=== PATIENT | female | born 1995 | race Caucasian/White ===

== ENCOUNTER 2018-06-03 07:50 | Inpatient (IN) ==
[2018-06-03] MEDS ORDERED: Propofol Inj 500 MG/50 ML Vial ONE (08:01)
[2018-06-03] MEDS ORDERED: Sod Chloride 0.9% Inj 1,000 ML IV.SIG ONE (08:04)
[2018-06-03] MEDS ORDERED: Etomidate Inj 20 MG/10 ML Ampul IV.PUSH ONE (08:04)
[2018-06-03] MEDS ORDERED: Succinylcholine Inj 100 MG/5 ML Syringe IV.PUSH ONE (08:04)
[2018-06-03] MEDS ORDERED: Propofol 1000 mg/100 ml Inj 1,000 MG/100 ML BOTTLE IV.CONT PRN (08:04)
[2018-06-03 08:27] LABS: ABG Base Excess -5.3 mmol/L (-2-2); ABG PCO2 37 mmHg (38-42); ABG PO2 355 mmHg (61-120)
[2018-06-03 08:35] LABS: Baso # (Auto) 0.1 th/mm3 (0.0-0.2); Baso % (Auto) 0.7 % (0.0-2.0); Eos # (Auto) 0.5 th/mm3 (0.0-0.4); Lymph # (Auto) 2.2 th/mm3 (1.0-4.8); Lymph % (Auto) 18.6 % (9.0-44.0); Mean Corpuscular HGB Conc 34.4 % (32.0-36.0); Mean Corpuscular Hemoglobin 30.8 pg (27.0-34.0); Mean Corpuscular Volume 89.7 fL (80.0-100.0); Mean Platelet Volume 8.3 fL (7.0-11.0); Mono % (Auto) 8.4 % (0.0-8.0); Neut # (Auto) 8.1 th/mm3 (1.8-7.7); Neut % (Auto) 68.3 % (16.0-70.0); Platelet Count 321 th/mm3 (150-450); Red Blood Count 3.23 mil/mm3 (4.00-5.30); Red Cell Distribution Width 14.4 % (11.6-17.2); White Blood Count 11.8 th/mm3 (4.0-11.0)
[2018-06-03 08:38] LABS: Bilirubin,Urine Negative (Negative); Clarity,Urine Hazy (Clear); Color,Urine Amber (Yellw/Straw); Glucose,Urine (UA) Negative (Negative); Leukocyte Esterase,Urine Trace (Negative); Mucus,Urine Many /lpf (Occasional); Nitrite,Urine Negative (Negative); Specific Gravity,Urine 1.029 (1.002-1.035); Squamous Epithelial Cell,Urine 1 /hpf (0-5)
[2018-06-03 08:42] LABS: INR 1.2 Ratio; Prothrombin Time 12.2 sec (9.8-11.6)
[2018-06-03 08:48] LABS: Amphetamine Screen,Urine Pos (Neg); Barbiturate Screen,Urine Neg (Neg); Cannabinoid Screen,Urine Neg (Neg); Cocaine Screen,Urine Neg (Neg)
[2018-06-03] MEDS ORDERED: Atropine Inj 1 MG/10 ML Syringe ONE (08:50)
[2018-06-03] MEDS ORDERED: Potassium Phosphate Inj 30 MMOL in Sodium Chlor 0.9% Inj 250 ML IV.SIG PRN (08:52)
[2018-06-03] MEDS ORDERED: Sodium Phosphate Inj 30 MMOL in Sodium Chlor 0.9% Inj 250 ML IV.SIG PRN (08:52)
[2018-06-03] MEDS ORDERED: Bisacodyl 10 MG Supp RECTAL PRN (08:52)
[2018-06-03] MEDS ORDERED: fentaNYL 10 mcg/mL Premix Drip 2,500 MCG/250 ML BAG IV.SIG PRN (08:52)
[2018-06-03] MEDS ORDERED: Magnesium Oxide 400 MG Tablet PO PRN (08:52)
[2018-06-03] MEDS ORDERED: Magnesium Sulfate Inj 2 GM in Sodium Chlor 0.9% Inj 96 ML IV.SIG PRN (08:52)
[2018-06-03] MEDS ORDERED: Potassium Phosphate 500 MG Soluble Tablet PO PRN ×2 (08:52)
[2018-06-03] MEDS ORDERED: Potassium Chlor 20 mEq Premix 20 MEQ/100 ML PIGGYBACK IV.SIG PRN ×2 (08:52)
[2018-06-03] MEDS ORDERED: Potassium Chloride 25 MEQ Effervescent Tablet PO PRN (08:52)
[2018-06-03] MEDS ORDERED: Potassium Chlor 40 mEq Premix 40 MEQ/100 ML PIGGYBACK IV.SIG PRN ×2 (08:52)
[2018-06-03] MEDS ORDERED: Magnesium Sulfate Inj 4 GM in Sodium Chlor 0.9% Inj 92 ML IV.SIG PRN (08:52)
[2018-06-03 08:56] LABS: Opiate Screen,Urine Neg (Neg)
[2018-06-03 08:59] LABS: Albumin 3.1 g/dL (3.4-5.0); Anion Gap 12 meq/L (5-15); Aspartate Aminotransferase 32 U/L (15-37); Blood Urea Nitrogen 14 mg/dL (7-18); Calcium 8.5 mg/dL (8.5-10.1); Chloride 111 meq/L (98-107); Glomerular Filtration Rate 77 mL/min (>89); Glucose,Random 113 mg/dL (74-106); Lipase 103 U/L (73-393); Sodium 143 meq/L (136-145)
--- NOTE | 2018-06-03 08:59 | P.HPCC ---
History of Present Illness Service: Critical care medicine Primary Care Physician: Unknown Chief Complaint: Patient overdose on GHB/respiratory failure unresponsive History of Present Illness: This is a 23-year-old female. Actual name is Kay Duran. Date of admission 06/03/2018. Past medical history includes previous admissions with psychosis previously on olanzapine 5 mg daily 2014. Patient is currently around 4 months according to boyfriend. Patient does have track ballard in the left upper extremity laceration to her left pinky which is currently being sutured. Also severe valdivia on her abdomen and multiple tattoos. Patient presented to [facility] ED after taking an unknown amount of GHB and methamphetamine according to reports. Patient was intubated using 20 mg etomidate and 100 mg succinylcholine. Laceration left index finger currently being sutured and tdp will be provided. Patient was bradycardic requiring 1 mg of atropine. Bedside ultrasound was field twin pregnancies. 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 heart tones in ICU. Patient is currently intubated and sedated on a propofol drip Review of Systems unobtainable due to endotracheal tube PMFSH - History History Provided By: Family Member - Medical / Surgical Hx Neg / Unobtainable Medical Problems Denied: Unable to Obtain - Medical History Medical History: Medical History (Last Updated 06/03/18 @ 09:05 by Ck Marrero MD) Medical history unknown Surgical history unknown - Surgical History Surgical History: Surgical History (Last Updated 06/03/18 @ 09:05 by Ck Marrero MD) No significant past surgical history - Family History Family History: Family History (Last Updated 06/03/18 @ 09:04 by Ck Marrero MD) Other No significant family history - Tobacco History Second Hand Smoke Exposure: Yes Tobacco Use In Past 30 Days: Yes Smoking Status: Light tobacco smoker Tobacco Type: Cigarettes - Alcohol History How Often Do You Have a Drink Containing Alcohol: 2 to 4 times a month - Substance Use History Substance History: Active Abuse - Substance Use Type Amphetamines Status: Active Route Used: Inhalation Frequency: DAILY 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 Drugs Type: GHB Status: Active Route Used: By Mouth Reason for Use: Get High - Travel History Recent Travel in the [place] Within the Last 8 Weeks: No Recent Travel Out of the Country Within the Last 8 Weeks: No - Immunization History Tetanus Immunization: Unable to Assess Hx Influenza Vaccine This Season: Unable to Assess Medications and Allergies Active Medications: Active Medications Al Hydroxide/Mg Hydroxide (Milk Of [place] Liq) 30 ml PO Q12H PRN PRN Reason: Mild Constipation Albuterol (Albuterol Neb (Ximena)) 2.5 mg NEB Q2HR NEB PRN PRN Reason: SHORTNESS OF BREATH/WHEEZING Artificial Tears (Genteal Severe Dry Eye Relief 0.3% Opth Gel) 1 drops EACH EYE BID XIMENA Bisacodyl (Dulcolax Supp) 10 mg RECTAL DAILY PRN PRN Reason: SEVERE CONSITIPATION Chlorhexidine Gluconate (Chlorhexidine 2% Cloth) 3 pack TOPICAL DAILY@0400 XIMENA Stop: 06/09/18 03:59 Chlorhexidine Gluconate (Chlorhexidine 2% Cloth) 3 pack TOPICAL DAILY@0400 PRN PRN Reason: Extra cloth needed Stop: 06/09/18 03:59 Famotidine (Pepcid Pf Inj) 20 mg IV.PUSH Q12HR XIMENA Propofol (Diprivan 1000 Mg/100 Ml Inj) 1,000 mg in 100 mls @ 1.769 mls/hr IV.CONT TITRATE PRN; Protocol PRN Reason: Per Protocol Last Admin: 06/03/18 08:28 Dose: 5 mcg/kg/min, 1.77 mls/hr Fentanyl (Fentanyl 10 Mcg/Ml Premix Drip) 2,500 mcg in 250 mls @ 5 mls/hr IV.SIG TITRATE PRN; Protocol PRN Reason: Per Protocol Magnesium Sulfate Inj 4 gm/ (Sodium Chloride) 100 mls @ 50 mls/hr IV.SIG UNSCH PRN PRN Reason: For Magnesium 0.9 - 1.1 mg/dL Magnesium Sulfate Inj 2 gm/ (Sodium Chloride) 100 mls @ 50 mls/hr IV.SIG UNSCH PRN PRN Reason: For Magnesium 1.2 - 1.6 mg/dL Sodium Chloride (Ns Inj) 1,000 mls @ 84 mls/hr IV.CONT .[id number] XIMENA Potassium Chloride (Kcl 40 Meq Premix Inj) 40 meq in 100 mls @ 25 mls/hr IV.SIG Q2H PRN PRN Reason: For Potassium 2.8 - 3.2 mEq/L Potassium Chloride (Kcl 40 Meq Premix Inj) 40 meq in 100 mls @ 25 mls/hr IV.SIG UNSCH PRN PRN Reason: For Potassium 3.3 - 3.5 mEq/L Potassium Chloride (Kcl 20 Meq Premix Inj) 20 meq in 100 mls @ 50 mls/hr IV.SIG Q2H PRN PRN Reason: For Potassium 2.8 - 3.2 mEq/L Potassium Phosphate 30 mmol/ (Sodium Chloride) 260 mls @ 42 mls/hr IV.SIG UNSCH PRN PRN Reason: SEE LABEL COMMENTS Sodium Phosphate 30 mmol/ (Sodium Chloride) 260 mls @ 42 mls/hr IV.SIG UNSCH PRN PRN Reason: For Phosphorus < 2.5 mg/dL Potassium Chloride (Kcl 20 Meq Premix Inj) 20 meq in 100 mls @ 50 mls/hr IV.SIG Q2H PRN PRN Reason: For Potassium 3.3 - 3.5 mEq/L Lactulose (Lactulose Liq) 30 ml PO DAILY PRN PRN Reason: SEVERE CONSITIPATION Magnesium Oxide (Mag-Ox) 800 mg PO UNSCH PRN PRN Reason: For Magnesium 1.2 - 1.6 mg/dL Potassium Bicarb/Potassium Chloride (K-Lyte Cl Eff) 50 meq PO UNSCH PRN PRN Reason: For Potassium 3.3 - 3.5 mEq/L Potassium Phosphate (K-Phos Original) 2,000 mg PO Q4H PRN PRN Reason: Phosphorus Less Than 2.5 mg/dL Potassium Phosphate (K-Phos Original) 2,000 mg PO UNSCH PRN PRN Reason: SEE LABEL COMMENTS Senna/Docusate Sodium (Rain-Colace) 1 tab PO BID XIMENA Sennosides (Senokot) 17.2 mg PO Q12H PRN PRN Reason: Moderate Constipation Sodium Chloride (Ns Flush) 2 ml IV.FLUSH BID XIMENA Sodium Chloride (Ns Flush) 2 ml IV.FLUSH PRN PRN PRN Reason: FLUSH AFTER USING IV ACCESS Allergies Allergy/AdvReac Type Severity Reaction Status Date / Time No Allergy Information Allergy Verified 06/03/18 08:16 Available Home Medications Medication Instructions Recorded Confirmed Type Unable to Obtain Home Meds 06/03/18 06/03/18 History Results - Labs CBC & Chem 7: 06/03/18 08:00 06/03/18 08:00 Labs: Short CBC 06/03/18 Range/Units 08:00 WBC 11.8 H (4.0-11.0) th/mm3 Hgb 10.0 L (11.6-15.3) gm/dL Hct 29.0 L (35.0-46.0) % Plt Count 321 (150-450) th/mm3 Urine 06/03/18 Range/Units 08:15 Urine Color Beth (Yellw/Straw) Urine Clarity Hazy H (Clear) Urine pH 5.0 (5.0-8.5) Ur Specific [place] 1.029 (1.002-1.035) Urine Protein 30 H (Neg-Trace) mg/dL Urine Glucose (UA) Negative (Negative) mg/dL Exam Vital signs: Vital Signs 06/03/18 07:56 06/03/18 07:58 06/03/18 08:01 Temperature 94 F L Pulse Rate 50 L 59 L Respiratory Rate 4 L 16 16 Blood Pressure 136/71 142/69 H Pulse Oximetry 100 100 100 06/03/18 08:29 Temperature Pulse Rate 41 L Respiratory Rate 14 Blood Pressure 122/58 L Pulse Oximetry 100 Intake & Output 06/02/18 06/03/18 06/03/18 18:59 06:59 18:59 Weight 58.967 kg Narrative: GENERAL: 23-year-old female currently orotracheally intubated SKIN: Warm and dry. Multiple tattoos. Laceration to left pinky's sutured. Pulses intact. HEAD: Atraumatic. Normocephalic. EYES: Pupils equal and round about 3 members bilaterally reactive to 2.. No scleral icterus. No injection or drainage. ENT: No nasal bleeding or discharge. Mucous membranes pink and moist. NECK: Trachea midline. No JVD. CARDIOVASCULAR: Bradycardic, RR. S1, S2. No S4. 2/6 murmur pansystolic RESPIRATORY: No accessory muscle use. Clear to auscultation. Breath sounds equal bilaterally. GASTROINTESTINAL: Abdomen soft, protuberant. Hypoactive bowel sounds appreciated heart tones are appreciated on monitor MUSCULOSKELETAL: Extremities without clubbing, cyanosis, or edema. No obvious deformities. NEUROLOGICAL: Currently sedated on a propofol drip on the ventilator. Positive gag. Withdraws to pain. Septic Shock Reassessment Septic shock perfusion: reassessment completed Caprini VTE Risk Assessment Caprini VTE Risk Assessment: No/Low Risk (score <= 1) VTE Pharmacological Exception Reason: High risk for bleeding Caprini Risk Assessment Model: Point Value = 1 Point Value = 2 Point Value = 3 Point Value = 5 Age 41-60 Minor surgery BMI > 25 kg/m2 Swollen legs Varicose veins or History of unexplained or recurrent spontaneous Oral contraceptives or hormone replacement Sepsis (< 1 month) Serious lung disease, including pneumonia (< 1 month) Abnormal pulmonary function Acute myocardial infarction Congestive heart failure (< 1 month) History of inflammatory bowel disease Medical patient at bed rest Age 61-74 Arthroscopic surgery Major open surgery (> 45 min) Laparoscopic surgery (> 45 min) Malignancy Confined to bed (> 72 hours) Immobilizing plaster cast Central venous access Age >= 75 History of VTE Family history of VTE Factor V Leiden Prothrombin [id number] Lupus anticoagulant Anticardiolipin antibodies Elevated serum homocysteine Heparin-induced thrombocytopenia Other congenital or acquired thrombophilia Stroke (< 1 month) Elective arthroplasty Hip, pelvis, or leg fracture Acute spinal cord injury (< 1 month) Prophylaxis Regimen: Total Risk Factor Score Risk Level Prophylaxis Regimen 0-1 Low Early ambulation 2 Moderate Order ONE of the following: *Sequential Compression Device (SCD) *Heparin 5000 units SQ BID 3-4 Higher Order ONE of the following medications: *Heparin 5000 units SQ TID *Enoxaparin/Lovenox 40 mg SQ daily (WT < 150 kg, CrCl > 30 mL/min) *Enoxaparin/Lovenox 30 mg SQ daily (WT < 150 kg, CrCl > 10-29 mL/min) *Enoxaparin/Lovenox 30 mg SQ BID (WT < 150 kg, CrCl > 30 mL/min) AND/OR *Sequential Compression Device (SCD) 5 or more Highest Order ONE of the following medications: *Heparin 5000 units SQ TID (Preferred with Epidurals) *Enoxaparin/Lovenox 40 mg SQ daily (WT < 150 kg, CrCl > 30 mL/min) *Enoxaparin/Lovenox 30 mg SQ daily (WT < 150 kg, CrCl > 10-29 mL/min) *Enoxaparin/Lovenox 30 mg SQ BID (WT < 150 kg, CrCl > 30 mL/min) AND *Sequential Compression Device (SCD) Assessment and Plan - Assessment and Plan Plan: Neuro/Psych: Polysubstance overdose including GHB and and methamphetamine/reported Acute delirium Patient is written for propofol/fentanyl drips for sedation/analgesia while intubated RASS -1 Daily sedation vacation Acetaminophen 650 every 6 hours as needed fever CV: Sinus bradycardia Follow-up on EKG. Received 1 mg atropine ED. We will attempt use fentanyl or propofol for sedation currently. Resp: Acute respiratory failure PRVC 16/450/1//60 Ventilator bundle As needed albuterol aerosols every 2 hours. Dyspnea Spontaneous breathing trials when clinically indicated GI: OGT to LIWS Famotidine for GI prophylaxis Docusate sodium/senna 1 tablet twice daily for bowel regimen : Maintain [place] catheter for accurate I's and O's in a critically ill patient. 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 Endo: Sliding scale insulin with aspart insulin 6 to maintain euglycemia every 6 hours Check TSH Renal: Currently normal saline at 84 cc an hour Monitor urine output Accurate I's and O's Heme: Leukocytosis Normocytic anemia Monitor CBC daily. Follow trends. No indication for transfusion of blood products at this time. INR 1.2 ID: Monitor for signs and symptomatology infection. UA negative FEN: Replace electrolytes as clinically indicated per ICU electrolyte protocol MSK: PT evaluate and treat Access -Utilize peripheral IV. Central line if indicated Prophylaxis -GI -famotidine -DVT -SCD/holding pharmacological prophylaxis in light of Critical care time 35 minutes addendum Patient self extubated and brought to floor. Currently on as needed lorazepam, fentanyl and dexmedetomidine drip if needed. Psychiatric consultation. Discussed with OB hospitalist. Okayed for use of benzodiazepines and opiates initially. Precedex if absolutely necessary. Patient appears to be calm down. Psychiatry consultation for overdose Code Status: Full code Discussed Condition With: Dr. Stearns/ED physician. ED RN. Care plan discussed and all questions answered.
[2018-06-03 09:00] LABS: Alanine Aminotransferase 28 U/L (10-53)
[2018-06-03] MEDS ORDERED: Diphtheria/Tetanus/Pertussis Vaccine Inj 0.5 ML Syringe IM ONE ×2 (09:05→09:36)
[2018-06-03] MEDS ORDERED: fentaNYL 10 mcg/mL Premix Drip 2,500 MCG/250 ML BAG ONE (09:08)
[2018-06-03] MEDS ORDERED: Dextrose 50% in Water 50 ML Vial IV.PUSH PRN (09:14)
[2018-06-03 09:18] LABS: Alkaline Phosphatase 68 U/L (45-117); Beta HCG,Quantitative 71234 mIU/mL (0-5); Total Protein 6.6 g/dL (6.4-8.2)
--- NOTE | 2018-06-03 09:21 | ED ---
HPI General Chief complaint: Overdose Stated complaint: Straightback Time Seen by Provider: 06/03/18 08:03 Source: patient and RN notes reviewed Mode of arrival: other History of Present Illness HPI narrative: Approximately 18yF brought in by boyfriend for overdose. The friend reports that the patient is approximately 4 months and took an unknown amount of GHB and methamphetamine prior to arrival. The patient arrived unresponsive and was not able to provide meaningful contribution to HPI. Related Data Home Medications Medication Instructions Recorded Confirmed Unable to Obtain Home Meds 06/03/18 06/03/18 Allergies Allergy/AdvReac Type Severity Reaction Status Date / Time No Allergy Information Allergy Verified 06/03/18 08:16 Available Review of Systems ROS Unobtainable unobtainable due to mental status PMFSH History History Provided By: Patient Medical History Medical History Medical history unknown (Acute) Surgical history unknown (Acute) Surgical History Surgical History No significant past surgical history (Acute) Family History Family History Other No significant family history Social History Social History Substance History: Active Abuse Second Hand Smoke Exposure: Yes Smoking Status: Light tobacco smoker Tobacco Type: Cigarettes How Often Do You Have a Drink Containing Alcohol: 2 to 4 times a month Recent Travel in [place] within the Last 8 Weeks: No Recent Out of Country Travel within the Last 8 Weeks: No Substance Abuse Detail Amphetamines: Substance Use Status: Active Route Used Substance Abuse: Inhalation Substance Frequency: DAILY Reason for Use: Get High 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 Drugs: Substance Use Type Other:: GHB Substance Use Status: Active Route Used Substance Abuse: By Mouth Reason for Use: Get High Immunization History Tetanus Immunization: Unable to Assess Hx Influenza Vaccine This Season: Unable to Assess Exam Const Other: Unresponsive HENMT Head: normocephalic and atraumatic Eyes Other: Pupils 2 mm and sluggishly reactive Chest Chest: normal inspection of the chest Resp Other: Agonal respirations Cardio Rate: bradycardic Rhythm: regular rhythm GI Inspection: non-distended Palpation: soft and nontender Other: Uterine fundus palpable below umbilicus Doppler heart tones in RLQ 137 BPM Skin Other: Multiple scars on arms consistent with IV drug abuse Circular scars on legs concerning for healed valdivia 4 cm complex laceration to left 5th digit with arterial bleeding Diaphoretic Neuro Other: GCS 4 ([id number]), no spontaneous movements of extremities Psych Other: Unable to assess Procedures Intubation Time Out Performed: No Sedative: etomidate Mg Given: 20 Paralytic: succinylcholine Mg Given: 100 Laryngoscope: Chap[place] ET Tube Size: 7 ET Tube Uncuffed: Yes Tube Secured Depth (cm): 25 Tube Secured Location: teeth Tube Placement Confirmation: visualized tube passing through cords, equal breath sounds bilaterally and no breath sounds over epigastrium Patient Tolerated Procedure: well and no complications Laceration Laceration 1: Site: hand Side (If applicable): left Size (cm): 4 Description: irregular and other (complex) Depth: involves muscle layer Pre-repair:: wound explored and irrigated extensively (arterial bleeding noted from medial aspect of left 5th digit) Skin layer closed with: ethilon Size (cm): 3-0 Number of sutures:: 5 Technique:: simple, interrupted Muscle layer closed with: vicryl Size:: 3-0 Number of sutures: 3 (required 2 "figure of 8" sutures for hemostasis. Patient was intubated and sedated, so I was unable to check motor strength or sensation either prior to or following procedure.) Course Consultations Consultation #1: Case discussed with Dr. Vargas of [facility], who approved US. The patient was found to have a twin gestation by US tech. His team will consult. Time: 09:29 Initial Documented Vital Signs Temperature 94 F L 06/03/18 07:56 Pulse Rate 50 L 06/03/18 07:56 Respiratory Rate 4 L 06/03/18 07:56 Blood Pressure 136/71 06/03/18 07:56 Pulse Oximetry 100 06/03/18 07:56 Last Documented Vital Signs Temperature 94 F L 06/03/18 07:56 Pulse Rate 41 L 06/03/18 08:29 Respiratory Rate 14 06/03/18 08:29 Blood Pressure 122/58 L 06/03/18 08:29 Pulse Oximetry 100 06/03/18 08:29 Critical Care Time Critical Care Time: Yes Total Critical Care Time: 40 Attestation: Total critical care time 40 minutes. This includes examining and stabilizing the patient, gathering a history from a source other than the patient (i.e., boyfriend), formulating a differential diagnosis, ordering and interpreting laboratory tests and EKG, ordering and interpreting radiology tests , discussing the patient's care with other providers (ICU, OB-TOUR OPERATOR), titration of multiple drips, and re-evaluation at frequent intervals. Amount of time is separate from teaching, counseling the patient and/or family, and exclusive of procedures. Medical Decision Making MDM Narrative Medical decision making narrative: Assessment: Approximately 18yF presenting with overdose Plan: Intubation CXR Labs Urine drug screen ICU admission The police were notified by RN as there is a concern for intimate partner violence or sex trafficking Differential Diagnosis Differential Diagnosis: Differential diagnosis includes, but is not limited to: overdose, intoxication/ withdrawal, POC Test Results POC Urine Results: Positive Lab Data Lab results reviewed: Yes I reviewed the patient's lab results. Result diagrams: 06/03/18 08:00 06/03/18 08:00 Lab Results 06/03/18 06/03/18 06/03/18 Range/Units 08:00 08:00 08:00 WBC 11.8 H (4.0-11.0) th/mm3 RBC 3.23 L (4.00-5.30) mil/mm3 Hgb 10.0 L (11.6-15.3) gm/dL Hct 29.0 L (35.0-46.0) % MCV 89.7 (80.0-100.0) fL MCH 30.8 (27.0-34.0) pg MCHC 34.4 (32.0-36.0) % RDW 14.4 (11.6-17.2) % Plt Count 321 (150-450) th/mm3 MPV 8.3 (7.0-11.0) fL Neut % (Auto) 68.3 (16.0-70.0) % Lymph % (Auto) 18.6 (9.0-44.0) % [place] % (Auto) 8.4 H (0.0-8.0) % Eos % (Auto) 4.0 (0.0-4.0) % Baso % (Auto) 0.7 (0.0-2.0) % Neut # (Auto) 8.1 H (1.8-7.7) th/mm3 Lymph # (Auto) 2.2 (1.0-4.8) th/mm3 [place] # (Auto) 1.0 H (0.0-0.9) th/mm3 Eos # (Auto) 0.5 H (0.0-0.4) th/mm3 Baso # (Auto) 0.1 (0.0-0.2) th/mm3 WBC Differential . Differential Comment Auto diff final PT 12.2 H (9.8-11.6) sec INR 1.2 Ratio Puncture Site Patient Temperature O2 Saturation (90-100) % ABG pH (7.380-7.420) ABG pCO2 (38-42) mmHg ABG pO2 (61-120) mmHg ABG HCO3 (22-26) mmol/L ABG O2 Content (12.0-20.0) Vol % ABG Base Excess (-2-2) mmol/L ABG Methemoglobin (0-2) % Sadi Test Hemoglobin (12.0-16.0) G/DL Carboxyhemoglobin (0-4) % O2 Delivery Device Vent Setting Inspired O2 % Critical Value Sodium 143 (136-145) meq/L Potassium 3.0 L (3.5-5.1) meq/L Chloride 111 H (98-107) meq/L Carbon Dioxide 20.0 L (21.0-32.0) meq/L Anion Gap 12 (5-15) meq/L BUN 14 (7-18) mg/dL Creatinine 0.66 (0.50-1.00) mg/dL Estimated GFR 77 L (>89) mL/min Random Glucose 113 H (74-106) mg/dL Lactic Acid (0.4-2.0) mmol/L Calcium 8.5 (8.5-10.1) mg/dL Total Bilirubin 0.3 (0.2-1.0) mg/dL AST 32 (15-37) U/L ALT 28 (10-53) U/L Alkaline Phosphatase 68 (45-117) U/L Troponin I Less than 0.02 L (0.02-0.05) ng/mL Total Protein 6.6 (6.4-8.2) g/dL Albumin 3.1 L (3.4-5.0) g/dL Lipase 103 (73-393) U/L TSH (0.358-3.740) uIU/mL Beta HCG, Quant 64833 H (0-5) mIU/mL Urine Color (Yellw/Straw) Urine Clarity (Clear) Urine pH (5.0-8.5) Ur Specific [place] (1.002-1.035) Urine Protein (Neg-Trace) mg/dL Urine Glucose (UA) (Negative) mg/dL Urine Ketones (Negative) mg/dL Urine Occult Blood (Negative) Urine Nitrate (Negative) Urine Bilirubin (Negative) Urine Urobilinogen (Less than 2) mg/dL Ur Leukocyte Esterase (Negative) Urine RBC (0-3) /hpf Urine WBC (0-5) /hpf Ur Squamous Epith Cells (0-5) /hpf Urine Mucus (Occasional) /lpf Micro UA Comment Urine Culture Comments Salicylates (2.8-20.0) mg/dL Urine Opiates Screen (Neg) Acetaminophen Less than 2.0 L (10.0-30.0) mcg/mL Ur Barbiturates Screen (Neg) Ur Amphetamines Screen (Neg) U Benzodiazepines Scrn (Neg) Urine Cocaine Screen (Neg) U Cannabinoids Screen (Neg) Serum Alcohol Less than 3 (0-5) mg/dL 06/03/18 06/03/18 06/03/18 Range/Units 08:00 08:00 08:04 WBC (4.0-11.0) th/mm3 RBC (4.00-5.30) mil/mm3 Hgb (11.6-15.3) gm/dL Hct (35.0-46.0) % MCV (80.0-100.0) fL MCH (27.0-34.0) pg MCHC (32.0-36.0) % RDW (11.6-17.2) % Plt Count (150-450) th/mm3 MPV (7.0-11.0) fL Neut % (Auto) (16.0-70.0) % Lymph % (Auto) (9.0-44.0) % [place] % (Auto) (0.0-8.0) % Eos % (Auto) (0.0-4.0) % Baso % (Auto) (0.0-2.0) % Neut # (Auto) (1.8-7.7) th/mm3 Lymph # (Auto) (1.0-4.8) th/mm3 [place] # (Auto) (0.0-0.9) th/mm3 Eos # (Auto) (0.0-0.4) th/mm3 Baso # (Auto) (0.0-0.2) th/mm3 WBC Differential Differential Comment PT (9.8-11.6) sec INR Ratio Puncture Site Left radial Patient Temperature 98.6 O2 Saturation 98 (90-100) % ABG pH 7.34 L (7.380-7.420) ABG pCO2 37 L (38-42) mmHg ABG pO2 355 H (61-120) mmHg ABG HCO3 19 L (22-26) mmol/L ABG O2 Content 13.7 (12.0-20.0) Vol % ABG Base Excess -5.3 L (-2-2) mmol/L ABG Methemoglobin 0.6 (0-2) % Sadi Test Present Hemoglobin 9.2 L (12.0-16.0) G/DL Carboxyhemoglobin 1.1 (0-4) % O2 Delivery Device Ventilator Vent Setting Inspired O2 60 % Critical Value No Sodium (136-145) meq/L Potassium (3.5-5.1) meq/L Chloride (98-107) meq/L Carbon Dioxide (21.0-32.0) meq/L Anion Gap (5-15) meq/L BUN (7-18) mg/dL Creatinine (0.50-1.00) mg/dL Estimated GFR (>89) mL/min Random Glucose (74-106) mg/dL Lactic Acid (0.4-2.0) mmol/L Calcium (8.5-10.1) mg/dL Total Bilirubin (0.2-1.0) mg/dL AST (15-37) U/L ALT (10-53) U/L Alkaline Phosphatase (45-117) U/L Troponin I (0.02-0.05) ng/mL Total Protein (6.4-8.2) g/dL Albumin (3.4-5.0) g/dL Lipase (73-393) U/L TSH 1.010 (0.358-3.740) uIU/mL Beta HCG, Quant (0-5) mIU/mL Urine Color (Yellw/Straw) Urine Clarity (Clear) Urine pH (5.0-8.5) Ur Specific [place] (1.002-1.035) Urine Protein (Neg-Trace) mg/dL Urine Glucose (UA) (Negative) mg/dL Urine Ketones (Negative) mg/dL Urine Occult Blood (Negative) Urine Nitrate (Negative) Urine Bilirubin (Negative) Urine Urobilinogen (Less than 2) mg/dL Ur Leukocyte Esterase (Negative) Urine RBC (0-3) /hpf Urine WBC (0-5) /hpf Ur Squamous Epith Cells (0-5) /hpf Urine Mucus (Occasional) /lpf Micro UA Comment Urine Culture Comments Salicylates 2.9 (2.8-20.0) mg/dL Urine Opiates Screen (Neg) Acetaminophen (10.0-30.0) mcg/mL Ur Barbiturates Screen (Neg) Ur Amphetamines Screen (Neg) U Benzodiazepines Scrn (Neg) Urine Cocaine Screen (Neg) U Cannabinoids Screen (Neg) Serum Alcohol (0-5) mg/dL 06/03/18 06/03/18 06/03/18 Range/Units 08:15 08:15 08:22 WBC (4.0-11.0) th/mm3 RBC (4.00-5.30) mil/mm3 Hgb (11.6-15.3) gm/dL Hct (35.0-46.0) % MCV (80.0-100.0) fL MCH (27.0-34.0) pg MCHC (32.0-36.0) % RDW (11.6-17.2) % Plt Count (150-450) th/mm3 MPV (7.0-11.0) fL Neut % (Auto) (16.0-70.0) % Lymph % (Auto) (9.0-44.0) % [place] % (Auto) (0.0-8.0) % Eos % (Auto) (0.0-4.0) % Baso % (Auto) (0.0-2.0) % Neut # (Auto) (1.8-7.7) th/mm3 Lymph # (Auto) (1.0-4.8) th/mm3 [place] # (Auto) (0.0-0.9) th/mm3 Eos # (Auto) (0.0-0.4) th/mm3 Baso # (Auto) (0.0-0.2) th/mm3 WBC Differential Differential Comment PT (9.8-11.6) sec INR Ratio Puncture Site Patient Temperature O2 Saturation (90-100) % ABG pH (7.380-7.420) ABG pCO2 (38-42) mmHg ABG pO2 (61-120) mmHg ABG HCO3 (22-26) mmol/L ABG O2 Content (12.0-20.0) Vol % ABG Base Excess (-2-2) mmol/L ABG Methemoglobin (0-2) % Sadi Test Hemoglobin (12.0-16.0) G/DL Carboxyhemoglobin (0-4) % O2 Delivery Device Vent Setting Inspired O2 % Critical Value Sodium (136-145) meq/L Potassium (3.5-5.1) meq/L Chloride (98-107) meq/L Carbon Dioxide (21.0-32.0) meq/L Anion Gap (5-15) meq/L BUN (7-18) mg/dL Creatinine (0.50-1.00) mg/dL Estimated GFR (>89) mL/min Random Glucose (74-106) mg/dL Lactic Acid 0.5 (0.4-2.0) mmol/L Calcium (8.5-10.1) mg/dL Total Bilirubin (0.2-1.0) mg/dL AST (15-37) U/L ALT (10-53) U/L Alkaline Phosphatase (45-117) U/L Troponin I (0.02-0.05) ng/mL Total Protein (6.4-8.2) g/dL Albumin (3.4-5.0) g/dL Lipase (73-393) U/L TSH (0.358-3.740) uIU/mL Beta HCG, Quant (0-5) mIU/mL Urine Color Beth (Yellw/Straw) Urine Clarity Hazy H (Clear) Urine pH 5.0 (5.0-8.5) Ur Specific [place] 1.029 (1.002-1.035) Urine Protein 30 H (Neg-Trace) mg/dL Urine Glucose (UA) Negative (Negative) mg/dL Urine Ketones 20 (Negative) mg/dL Urine Occult Blood Negative (Negative) Urine Nitrate Negative (Negative) Urine Bilirubin Negative (Negative) Urine Urobilinogen 2.0 H (Less than 2) mg/dL Ur Leukocyte Esterase Trace H (Negative) Urine RBC 1 (0-3) /hpf Urine WBC 2 (0-5) /hpf Ur Squamous Epith Cells 1 (0-5) /hpf Urine Mucus Many H (Occasional) /lpf Micro UA Comment Cath-culture not ind Urine Culture Comments Cath-cult not ind Salicylates (2.8-20.0) mg/dL Urine Opiates Screen Neg (Neg) Acetaminophen (10.0-30.0) mcg/mL Ur Barbiturates Screen Neg (Neg) Ur Amphetamines Screen Pos H (Neg) U Benzodiazepines Scrn Neg (Neg) Urine Cocaine Screen Neg (Neg) U Cannabinoids Screen Neg (Neg) Serum Alcohol (0-5) mg/dL Discharge Plan Discharge Disposition Patient Disposition: 30 Still Patient Discharge Condition Condition: Critical Discharge Details Diagnosis: Drug overdose, Acute respiratory failure with hypoxia, , Bradycardia, Finger laceration Physicians Team ED Provider: Laura Stearns Attending Provider: Ck Marrero Discharge Interventions Interventions: Vital Signs Last Done: 06/03/18 08:29 Status ED Status: Admitted Patient
[2018-06-03] MEDS ORDERED: Dexmedetomidine Inj 200 MCG in Sodium Chlor 0.9% Inj 48 ML IV.CONT PRN (10:38)
[2018-06-03] MEDS ORDERED: fentaNYL Citrate Inj 100 MCG/2 ML Ampul IV.PUSH PRN (10:39)
[2018-06-03] MEDS ORDERED: Haloperidol Inj 5 MG/ML Ampul IM PRN (11:44)
--- NOTE | 2018-06-03 11:50 | P.CONPSY ---
Provisional Diagnosis Admission Date: June 03, 2018 09:19 [place] I.: GHB abuse, methamphetamine abuse, drug-induced altered mental status History of Present Illness Service: Psychiatry Consult date: 06/03/18 Requesting Physician: Laura Stearns Reason for Consult: Assessment Chief Complaint: Patient overdose on GHB/respiratory failure unresponsive History of Present Illness: Patient is a 18+-year-old white female initially admitted as a Deidre Rodgers Yudelka stuporous and unresponsive needing intubation being found in her apartment with her boyfriend. It appears they have been using GHB and methamphetamine. Patient is intubated however on the way to intensive care she extubated herself as an episodes of arousal and confusion. Urine toxicology positive for amphetamines. There is a vague history patient is some mental health issues in the past have been on psychotropics in the past. At the present time patient laying in bed in soft restraints disheveled somewhat sedated though arousable to somewhat responsive she appears oriented to [facility] 2018 in May. She acknowledges using the methamphetamine but not the GHB. Of interest with us also the patient is a 16 weeks with twins. Supposed to the patient' s name is delfino lopez. Patient denies suicidality homicidality voices or visions. She is somewhat irritable and short tempered at this time along with some diffuse confusion. At this point feel patient's main need is report some behavioral control. I would suggest, with COMPOSITION INSTRUCTOR consent, small dose of Haldol perhaps 2 mg IM every 4 hours for agitation. At this time patient does not meet criteria for inpatient psychiatric care this is a substance abuse issue and delivery methods time thanks for consult will continue to follow Review of Systems unobtainable due to mental status PMFSH - History History Provided By: Patient - Medical / Surgical Hx Neg / Unobtainable Medical Problems Denied: Unable to Obtain - Medical History Medical History: Medical History (Last Reviewed 06/03/18 @ 09:22 by Laura Stearns DO) Medical history unknown Surgical history unknown - Surgical History Surgical History: Surgical History (Last Reviewed 06/03/18 @ 09:22 by Laura Stearns DO) No significant past surgical history - Family History Family History: Family History (Last Reviewed 06/03/18 @ 09:22 by Laura Stearns DO) Other No significant family history - Tobacco History Second Hand Smoke Exposure: Yes Tobacco Use In Past 30 Days: Yes Smoking Status: Light tobacco smoker Tobacco Type: Cigarettes - Alcohol History How Often Do You Have a Drink Containing Alcohol: 2 to 4 times a month - Substance Use History Substance History: Active Abuse - Substance Use Type Amphetamines Status: Active Route Used: Inhalation Frequency: DAILY 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 Drugs Type: GHB Status: Active Route Used: By Mouth Reason for Use: Get High - Travel History Recent Travel in the [place] Within the Last 8 Weeks: No Recent Travel Out of the Country Within the Last 8 Weeks: No - Immunization History Tetanus Immunization: Unable to Assess Hx Influenza Vaccine This Season: Unable to Assess Medications and Allergies Active Medications: Active Medications Acetaminophen (Tylenol Liq) 650 mg PO Q6H PRN PRN Reason: FEVER Al Hydroxide/Mg Hydroxide (Milk Of Magnesia Liq) 30 ml PO Q12H PRN PRN Reason: Mild Constipation Albuterol (Albuterol Neb (Prn)) 2.5 mg NEB Q2HR NEB PRN PRN Reason: SHORTNESS OF BREATH/WHEEZING Artificial Tears (Genteal Severe Dry Eye Relief 0.3% Opth Gel) 1 drops EACH EYE BID JENNIE Bisacodyl (Dulcolax Supp) 10 mg RECTAL DAILY PRN PRN Reason: SEVERE CONSITIPATION Chlorhexidine Gluconate (Chlorhexidine 2% Cloth) 3 pack TOPICAL DAILY@0400 JENNIE Stop: 06/09/18 03:59 Chlorhexidine Gluconate (Chlorhexidine 2% Cloth) 3 pack TOPICAL DAILY@0400 PRN PRN Reason: Extra cloth needed Stop: 06/09/18 03:59 Dextrose (D50w Vial) 50 ml IV.PUSH UNSCH PRN PRN Reason: PER HYPOGLYCEMIA PROTOCOL Famotidine (Pepcid Pf Inj) 20 mg IV.PUSH Q12HR JENNIE Fentanyl Citrate (Fentanyl Inj) 50 mcg IV.PUSH Q1H PRN PRN Reason: PAIN SCALE 1 TO 10 Glucagon (Glucagon Inj) 1 mg OTHER PRN PRN PRN Reason: for Hypoglycemia Protocol Haloperidol Lactate (Haldol Inj) 2 mg IM Q4H PRN PRN Reason: AGITATION Magnesium Sulfate Inj 4 gm/ (Sodium Chloride) 100 mls @ 50 mls/hr IV.SIG UNSCH PRN PRN Reason: For Magnesium 0.9 - 1.1 mg/dL Magnesium Sulfate Inj 2 gm/ (Sodium Chloride) 100 mls @ 50 mls/hr IV.SIG UNSCH PRN PRN Reason: For Magnesium 1.2 - 1.6 mg/dL Sodium Chloride (Ns Inj) 1,000 mls @ 84 mls/hr IV.CONT .[id number] JENNIE Potassium Chloride (Kcl 40 Meq Premix Inj) 40 meq in 100 mls @ 25 mls/hr IV.SIG Q2H PRN PRN Reason: For Potassium 2.8 - 3.2 mEq/L Potassium Chloride (Kcl 40 Meq Premix Inj) 40 meq in 100 mls @ 25 mls/hr IV.SIG UNSCH PRN PRN Reason: For Potassium 3.3 - 3.5 mEq/L Potassium Chloride (Kcl 20 Meq Premix Inj) 20 meq in 100 mls @ 50 mls/hr IV.SIG Q2H PRN PRN Reason: For Potassium 2.8 - 3.2 mEq/L Potassium Phosphate 30 mmol/ (Sodium Chloride) 260 mls @ 42 mls/hr IV.SIG UNSCH PRN PRN Reason: SEE LABEL COMMENTS Sodium Phosphate 30 mmol/ (Sodium Chloride) 260 mls @ 42 mls/hr IV.SIG UNSCH PRN PRN Reason: For Phosphorus < 2.5 mg/dL Potassium Chloride (Kcl 20 Meq Premix Inj) 20 meq in 100 mls @ 50 mls/hr IV.SIG Q2H PRN PRN Reason: For Potassium 3.3 - 3.5 mEq/L Dexmedetomidine HCl 200 mcg/ (Sodium Chloride) 50 mls @ 2.94 mls/hr IV.CONT TITRATE PRN; Protocol PRN Reason: Per Protocol Insulin Aspart (Novolog Insulin Correctional Sugar Inj) 0 unit SQ Q6HR JENNIE; Protocol Lactulose (Lactulose Liq) 30 ml PO DAILY PRN PRN Reason: SEVERE CONSITIPATION Lorazepam (Ativan Inj) 1 mg IV.PUSH Q15M PRN PRN Reason: AGITATION Magnesium Oxide (Mag-Ox) 800 mg PO UNSCH PRN PRN Reason: For Magnesium 1.2 - 1.6 mg/dL Potassium Bicarb/Potassium Chloride (K-Lyte Cl Eff) 50 meq PO UNSCH PRN PRN Reason: For Potassium 3.3 - 3.5 mEq/L Potassium Chloride (Klor-Con 10) 40 meq PO BID JENNIE Stop: 06/03/18 21:01 Potassium Phosphate (K-Phos Original) 2,000 mg PO Q4H PRN PRN Reason: Phosphorus Less Than 2.5 mg/dL Potassium Phosphate (K-Phos Original) 2,000 mg PO UNSCH PRN PRN Reason: SEE LABEL COMMENTS Senna/Docusate Sodium (Rain-Colace) 1 tab PO BID [facility] Sennosides (Senokot) 17.2 mg PO Q12H PRN PRN Reason: Moderate Constipation Sodium Chloride (Ns Flush) 2 ml IV.FLUSH BID [facility] Sodium Chloride (Ns Flush) 2 ml IV.FLUSH PRN PRN PRN Reason: FLUSH AFTER USING IV ACCESS Allergies Allergy/AdvReac Type Severity Reaction Status Date / Time No Allergy Information Allergy Verified 06/03/18 08:16 Available Home Medications Medication Instructions Recorded Confirmed Type Unable to Obtain Home Meds 06/03/18 06/03/18 History Exam Vital signs: Vital Signs 06/03/18 07:56 06/03/18 07:58 06/03/18 07:59 Temperature 94 F L 92.3 F L Pulse Rate 50 L 67 Respiratory Rate 4 L 16 14 Blood Pressure 136/71 123/61 Pulse Oximetry 100 100 06/03/18 08:01 06/03/18 08:29 06/03/18 08:51 Temperature 92.5 F L Pulse Rate 59 L 41 L Respiratory Rate 16 14 Blood Pressure 142/69 H 122/58 L Pulse Oximetry 100 100 06/03/18 08:52 Temperature Pulse Rate 65 Respiratory Rate Blood Pressure 119/60 Pulse Oximetry Intake & Output 06/02/18 06/03/18 06/03/18 18:59 06:59 18:59 Weight 58.967 kg Narrative: Please see med surge assessments Mental Status Examination Appearance: Disheveled Consciousness: Lethargic Orientation: Person, Place, Date/Time (Vaguely) Motor Activity: Other (Patient laying in bed in ICU) Speech: Hesitant, Slow, Other (Slurred) Language: Adequate Fund of Knowledge: Poor Attention and Concentration: Inadequate Memory: Impaired Mood: Angry, Irritable Affect: Other (Decreased range and intensity) Thought Process & Associations: Loose associations Hallucination Type: None Delusion Type: None Suicidal Ideation: No Suicidal Plan: No Suicidal Intention: No Homicidal Ideation: No Homicidal Plan: No Homicidal Intention: No Insight: Poor Judgment: Poor Assessment and Plan - Assessment (1) Gammahydroxy butarate (GHB) use disorder, mild, abuse Code(s): F13.10 - Sedative, hypnotic or anxiolytic abuse, uncomplicated Status : Acute (2) Methamphetamine abuse Code(s): F15.10 - Other stimulant abuse, uncomplicated Status: Acute (3) Delirium Code(s): R41.0 - Disorientation, unspecified Status: Acute - Plan Plan: Estimated LOS: [] days Patient continues delirious confused. Suggest small doses of Haldol for behavior control as needed only with okay of COMPOSITION INSTRUCTOR. We need to further monitor this patient's physical status and observe for further organization of her thoughts and behaviors Justification for Continued Inpatient Stay: See med surge Discharge Planning: To be determined
[2018-06-03] MEDS: Hypromellose 0.3% Opth Gel 10 GM Bottle EACH EYE SCH (12:03)
[2018-06-03] MEDS: Senna/Docusate Sodium 8.6/50 MG Tablet PO SCH ×2 (12:25→20:39)
[2018-06-03] MEDS: Famotidine PF Inj 20 MG/2 ML Vial IV.PUSH SCH ×2 (12:26→20:38)
[2018-06-03] MEDS: Sod Chloride 0.9% Inj 1,000 ML IV.CONT SCH (12:26)
[2018-06-03] MEDS: Insulin NovoLOG Aspart Correctional Sugar Inj SQ SCH ×2 (16:19→18:32)
--- NOTE | 2018-06-03 23:04 | ECG ---
Date Performed: 06/03/2018 Time Performed: 09:27:41 PTAGE: 89 years EKG: Sinus rhythm MODERATE INTRAVENTRICULAR CONDUCTION DELAY PROLONGED QT INTERVAL ABNORMAL ECG NO PREVIOUS TRACING DOCTOR: Edil Silva Interpretating Date/Time 06/03/2018 23:03:17
[2018-06-04] MEDS: Sod Chloride 0.9% Inj 1,000 ML IV.CONT SCH ×2 (00:43→08:10)
[2018-06-04] MEDS: Hypromellose 0.3% Opth Gel 10 GM Bottle EACH EYE SCH ×3 (00:44→20:39)
[2018-06-04] MEDS: Insulin NovoLOG Aspart Correctional Sugar Inj SQ SCH ×4 (00:44→19:51)
[2018-06-04] MEDS ORDERED: Chlorhexidine Gluconate 2% 1 Pack (2 Cloths) TOPICAL PRN (04:00)
[2018-06-04 06:09] LABS: Prothrombin Time 10.5 sec (9.8-11.6)
[2018-06-04 06:13] LABS: Baso % (Auto) 0.4 % (0.0-2.0); Eos # (Auto) 0.3 th/mm3 (0.0-0.4); Eos % (Auto) 2.5 % (0.0-4.0); Hematocrit 23.8 % (35.0-46.0); Hemoglobin 8.2 gm/dL (11.6-15.3); Lymph % (Auto) 17.7 % (9.0-44.0); Mean Corpuscular HGB Conc 34.6 % (32.0-36.0); Mean Corpuscular Hemoglobin 31.7 pg (27.0-34.0); Mean Corpuscular Volume 91.6 fL (80.0-100.0); Mean Platelet Volume 8.6 fL (7.0-11.0); Mono # (Auto) 0.8 th/mm3 (0.0-0.9); Neut # (Auto) 8.3 th/mm3 (1.8-7.7); Neut % (Auto) 72.4 % (16.0-70.0); Platelet Count 229 th/mm3 (150-450); White Blood Count 11.4 th/mm3 (4.0-11.0)
[2018-06-04 06:36] LABS: Alanine Aminotransferase 20 U/L (10-53); Albumin 2.5 g/dL (3.4-5.0); Alkaline Phosphatase 55 U/L (45-117); Anion Gap 10 meq/L (5-15); Aspartate Aminotransferase 22 U/L (15-37); Blood Urea Nitrogen 5 mg/dL (7-18); Calcium 7.5 mg/dL (8.5-10.1); Carbon Dioxide 21.6 meq/L (21.0-32.0); Chloride 111 meq/L (98-107); Glomerular Filtration Rate Greater Than 89 mL/min (>89); Glucose,Random 86 mg/dL (74-106); Potassium 3.1 meq/L (3.5-5.1); Sodium 143 meq/L (136-145)
[2018-06-04] MEDS: Chlorhexidine Gluconate 2% 1 Pack (2 Cloths) TOPICAL SCH (06:47)
[2018-06-04] MEDS: Famotidine PF Inj 20 MG/2 ML Vial IV.PUSH SCH ×2 (08:08→20:39)
[2018-06-04] MEDS: Senna/Docusate Sodium 8.6/50 MG Tablet PO SCH ×2 (08:08→20:40)
[2018-06-04] MEDS ORDERED: Potassium Phosphate Inj 30 MMOL in Sodium Chlor 0.9% Inj 250 ML IV.SIG ONE (09:30)
--- NOTE | 2018-06-04 11:57 | P.PNCC ---
Subjective Subjective Remarks/Hospital Course: This is a 23-year-old female. Actual name is Kay Duran. Date of admission 06/03/2018. Past medical history includes previous admissions with psychosis previously on olanzapine 5 mg daily 2014. Patient is currently around 4 months according to boyfriend. Patient does have track ballard in the left upper extremity laceration to her left pinky which is currently being sutured. Also severe valdivia on her abdomen and multiple tattoos. Patient presented to [facility] ED after taking an unknown amount of GHB and methamphetamine according to reports. Patient was intubated using 20 mg etomidate and 100 mg succinylcholine. Laceration left index finger currently being sutured and tdp will be provided. Patient was bradycardic requiring 1 mg of atropine. Bedside ultrasound was field twin pregnancies. ASSEMBLY TECHNICIAN will be counsulted for recommendations. heart tones in ICU. Patient is currently intubated and sedated on a propofol drip SUBJECTIVE: 06/04: Afebrile. Removing Deshpande in restraints. Currently replacing electrolytes. Very emotional. Objective Vital Signs / I&O: Vital Signs 06/03/18 12:00 06/03/18 13:00 06/03/18 14:00 Temperature 95.7 F L Pulse Rate 55 L 54 L 56 L Respiratory Rate 23 19 19 Blood Pressure 119/70 123/67 152/83 H Pulse Oximetry 100 100 100 06/03/18 15:00 06/03/18 16:00 06/03/18 17:00 Temperature 97.1 F L Pulse Rate 58 L 61 64 Respiratory Rate 15 16 28 H Blood Pressure 123/74 Pulse Oximetry 100 100 100 06/03/18 17:17 06/03/18 17:40 06/03/18 18:00 Temperature Pulse Rate 96 H 77 Respiratory Rate 41 H 20 Blood Pressure 133/74 118/58 L Pulse Oximetry 100 100 100 06/03/18 18:59 06/03/18 19:00 06/03/18 20:00 Temperature 98.1 F Pulse Rate 91 H 93 H 77 Respiratory Rate 23 21 17 Blood Pressure 111/61 116/53 L Pulse Oximetry 99 100 96 06/03/18 21:00 06/03/18 21:05 06/03/18 22:00 Temperature Pulse Rate 85 72 Respiratory Rate 25 H 22 Blood Pressure 114/57 L 112/54 L Pulse Oximetry 100 96 100 06/03/18 23:00 06/04/18 00:00 06/04/18 01:00 Temperature 98.7 F Pulse Rate 64 81 96 H Respiratory Rate 14 14 13 Blood Pressure 124/64 115/54 L 116/61 Pulse Oximetry 100 99 100 06/04/18 02:00 06/04/18 03:00 06/04/18 04:00 Temperature 98.4 F Pulse Rate 74 59 L 87 Respiratory Rate 13 22 36 H Blood Pressure 109/55 L 107/59 L 131/54 L Pulse Oximetry 99 100 100 06/04/18 05:00 06/04/18 06:00 06/04/18 07:00 Temperature 98.4 F 98.2 F Pulse Rate 76 78 83 Respiratory Rate 11 L 19 12 Blood Pressure 117/63 114/63 103/53 L Pulse Oximetry 100 100 100 06/04/18 08:00 06/04/18 09:00 06/04/18 10:00 Temperature 98.7 F Pulse Rate 96 H 82 90 Respiratory Rate 25 H 21 25 H Blood Pressure 107/63 124/59 L 124/65 Pulse Oximetry 100 100 100 06/04/18 11:00 Temperature Pulse Rate 81 Respiratory Rate 13 Blood Pressure 125/63 Pulse Oximetry 100 Intake & Output 06/03/18 06/04/18 06/04/18 18:59 06:59 18:59 Intake Total 550 / 550 1600 / 1600 1000 / 1000 Output Total 600 / 600 650 / 650 Balance -50 / -50 950 / 950 1000 / 1000 Weight 58.967 kg 74.096 kg Intake: IV 1000 / 1000 1000 / 1000 NS Inj 1,000 ML @ 84 mls/hr IV. 1000 / 1000 1000 / 1000 [id number] Rx#:[id number] Oral 550 / 550 600 / 600 Output: Urine Amount (Catheter) 600 / 600 650 / 650 Indwelling Urethral Catheter 600 / 600 650 / 650 Other: Date of Last Bowel Movement 06/02/18 06/02/18 06/02/18 Result Diagrams: 06/04/18 04:32 06/04/18 04:32 Objective Remarks: GENERAL: 23-year-old female currently resting in bed in room air no acute distress SKIN: Warm and dry. Multiple tattoos HEAD: Atraumatic. Normocephalic. EYES: Pupils equal and round. No scleral icterus. No injection or drainage. ENT: No nasal bleeding or discharge. Mucous membranes pink and moist. NECK: Trachea midline. No JVD. CARDIOVASCULAR: Regular rate and rhythm. RESPIRATORY: No accessory muscle use. Clear to auscultation. Breath sounds equal bilaterally. GASTROINTESTINAL: Abdomen soft, non-tender, nondistended. Hepatic and splenic margins not palpable. MUSCULOSKELETAL: Extremities without clubbing, cyanosis, or edema. No obvious deformities. NEUROLOGICAL: Awake and alert. No obvious cranial nerve deficits. Motor grossly within normal limits. Five out of 5 muscle strength in the arms and legs. Normal speech. PSYCHIATRIC: Appropriate mood and affect; insight and judgment normal. Assessment and Plan - Assessment and Plan Plan: Neuro/Psych: Polysubstance overdose including GHB and and methamphetamine/reported Acute delirium Acetaminophen 650 every 6 hours as needed fever Evaluated by psychiatry CV: Sinus bradycardia -resolved Discontinue IV fluids Received 1 mg atropine ED. Resp: Acute respiratory failure Nasal cannula if indicated to maintain saturations greater than equal 92% Incentive spirometer while awake As needed albuterol aerosols every 2 hours as needed for dyspnea GI: Regular diet Famotidine for GI prophylaxis Docusate sodium/senna 1 tablet twice daily for bowel regimen : Discontinue Deshpande catheter. UA negative on admission CORRECTIONAL FACILITY PSYCHIATRIST: Intrauterine Consultation to OB for assistance in management. Endo: Sliding scale insulin with aspart insulin 6 to maintain euglycemia every 6 hours Renal: Discontinue normal saline at 84 cc an hour Monitor urine output Accurate I's and O's Heme: Leukocytosis Normocytic anemia Monitor CBC daily. Follow trends. No indication for transfusion of blood products at this time. INR 1.2 ID: Monitor for signs and symptomatology infection. UA negative FEN: Hypopotassemia Replace electrolytes as clinically indicated per ICU electrolyte protocol MSK: PT evaluate and treat Access -Utilize peripheral IV. Central line if indicated Prophylaxis -GI -famotidine -DVT -SCD/holding pharmacological prophylaxis in light of Stable from critical care medicine standpoint. Assign care to hospitalist in a.m. 8/9.
[2018-06-04] MEDS ORDERED: Potassium Phos/Sodium Phos 250 MG Tablet PO ONE (11:59)
--- NOTE | 2018-06-04 17:17 | P.CONOB ---
History of Present Illness Primary Care Physician: UNKNOWN Chief Complaint: Patient overdose on GHB/respiratory failure unresponsive History of Present Illness: This is a 23-year-old female. Actual name is Kay Duran. Date of admission 06/03/2018. Past medical history includes previous admissions with psychosis previously on olanzapine 5 mg daily 2014. Patient is currently around 4 months according to boyfriend. Patient does have track ballard in the left upper extremity laceration to her left pinky which is currently being sutured. Also severe valdivia on her abdomen and multiple tattoos. Patient presented to [facility] ED after taking an unknown amount of GHB and methamphetamine according to reports. Patient was intubated using 20 mg etomidate and 100 mg succinylcholine. Laceration left index finger currently being sutured and tdp will be provided. Patient was bradycardic requiring 1 mg of atropine. Bedside ultrasound was field twin pregnancies. MANAGER BALANCE will be counsulted for recommendations. heart tones in ICU. Patient is currently intubated and sedated on a propofol drip Weeks Gestation:: 16 (TWINS) Para: 0 : 1 - Inpatient Certification I certify that the inpatient services were ordered in accordance with Medicare regulations governing the order. This includes certification that hospital inpatient services are reasonable and necessary and in the case of services not specified as inpatient-only under 42 CFR 419.22(n), that they are appropriately provided as inpatient services in accordance to with the 2-midnight benchmark under 43 CFR 412.3(e) Estimated Total Length of Stay (Days): 3 Plans for Post Hospital Care: Not yet determined Review of Systems Constitutional: Reports body ache(s), Reports lack of energy Cardiovascular: Denies chest pain, Denies chest pain at rest, Denies chest pain with activity, Denies excessive sweating, Denies fainting, Denies fast heart rate, Denies foot swelling, Denies generalized swelling, Denies irregular heart rhythm, Denies leg pain with activity, Denies leg sores, Denies leg swelling, Denies lightheadedness, Denies radiating jaw, neck or arm pain, Denies rapid, pounding, or irregular heartbeat, Denies shortness of breath, Denies shortness of breath with activity, Denies shortness of breath when lying down, Denies shortness of breath causing sudden awakening, Denies slow heart rate, Denies other Respiratory: Denies change in phlegm color, Denies chest congestion, Denies cough, Denies coughing up blood, Denies excessive phlegm production, Denies pain on inspiration, Denies pain with cough, Denies shortness of breath, Denies shortness of breath with activity, Denies snoring, Denies stridor, Denies wheezing, Denies other Gastrointestinal: Denies abdominal pain, Denies belching, Denies black, tarry stools, Denies bloating, Denies bright, red blood in stools, Denies change in bowel habits, Denies constant urge to pass stool, Denies change in stools, Denies coffee ground vomit, Denies constipation, Denies cramping, Denies difficulty swallowing, Denies excessive passing of gas, Denies feeling full early, Denies heartburn, Denies incontinent of stools, Denies loose stools, Denies nausea, Denies pain with swallowing, Denies vomiting, Denies vomiting blood, Denies other Genitourinary: Denies abnormal periods, Denies abnormal vaginal bleeding, Denies absent period, Denies bleeding between periods, Denies blood in urine, Denies difficulty starting urination, Denies difficulty urinating, Denies dribbling after urination, Denies frequent nighttime urination, Denies genital itching, Denies genital lesions, Denies heavy periods, Denies hot flashes, Denies light periods, Denies nipple discharge, Denies painful intercourse, Denies painful periods, Denies painful urination, Denies pelvic pain, Denies prolapse symptoms, Denies sexual problems, Denies side pain, Denies urinary incontinence, Denies urinary urgency, Denies vaginal discharge, Denies vaginal dryness, Denies vaginal odor, Denies vaginal itching, Denies other PMFSH - History History Provided By: Patient - Medical / Surgical Hx Neg / Unobtainable Medical Problems Denied: Unable to Obtain - Medical History Medical History: Medical History (Last Reviewed 06/04/18 @ 15:31 by Tiana Brown) Medical history unknown Surgical history unknown - Surgical History Surgical History: Surgical History (Last Reviewed 06/04/18 @ 15:31 by Tiana Brown) No significant past surgical history - Family History Family History: Family History (Last Reviewed 06/04/18 @ 15:31 by Tiana Brown) Other No significant family history - Tobacco History Second Hand Smoke Exposure: Yes Tobacco Use In Past 30 Days: Yes Smoking Status: Current every day smoker Tobacco Type: Cigarettes - Alcohol History How Often Do You Have a Drink Containing Alcohol: Never - Substance Use History Substance History: Active Abuse - Substance Use Type Amphetamines Status: Active Route Used: Intravenously Frequency: Weekly Reason for Use: Curiosity, Increase Energy Level 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 Drugs Type: GHB Status: Active Route Used: By Mouth Frequency: First Time Reason for Use: Curiosity - Travel History Recent Travel in the [place] Within the Last 8 Weeks: No Recent Travel Out of the Country Within the Last 8 Weeks: No - Immunization History Tetanus Immunization: Unable to Assess Hx Influenza Vaccine This Season: Unable to Assess Medications and Allergies Active Medications: Active Medications Acetaminophen (Tylenol Liq) 650 mg PO Q6H PRN PRN Reason: FEVER Al Hydroxide/Mg Hydroxide (Milk Of Magnesia Liq) 30 ml PO Q12H PRN PRN Reason: Mild Constipation Albuterol (Albuterol Neb (Prn)) 2.5 mg NEB Q2HR NEB PRN PRN Reason: SHORTNESS OF BREATH/WHEEZING Artificial Tears (Genteal Severe Dry Eye Relief 0.3% Opth Gel) 1 drops EACH EYE BID [facility] Last Admin: 06/04/18 08:10 Dose: Not Given Chlorhexidine Gluconate (Chlorhexidine 2% Cloth) 3 pack TOPICAL DAILY@0400 [facility] Stop: 06/09/18 03:59 Last Admin: 06/04/18 06:47 Dose: 3 pack Chlorhexidine Gluconate (Chlorhexidine 2% Cloth) 3 pack TOPICAL DAILY@0400 PRN PRN Reason: Extra cloth needed Stop: 06/09/18 03:59 Dextrose (D50w Vial) 50 ml IV.PUSH UNSCH PRN PRN Reason: PER HYPOGLYCEMIA PROTOCOL Famotidine (Pepcid Pf Inj) 20 mg IV.PUSH Q12HR [facility] Last Admin: 06/04/18 08:08 Dose: 20 mg Glucagon (Glucagon Inj) 1 mg OTHER PRN PRN PRN Reason: for Hypoglycemia Protocol Magnesium Sulfate Inj 4 gm/ (Sodium Chloride) 100 mls @ 50 mls/hr IV.SIG UNSCH PRN PRN Reason: For Magnesium 0.9 - 1.1 mg/dL Magnesium Sulfate Inj 2 gm/ (Sodium Chloride) 100 mls @ 50 mls/hr IV.SIG UNSCH PRN PRN Reason: For Magnesium 1.2 - 1.6 mg/dL Potassium Chloride (Kcl 40 Meq Premix Inj) 40 meq in 100 mls @ 25 mls/hr IV.SIG Q2H PRN PRN Reason: For Potassium 2.8 - 3.2 mEq/L Potassium Chloride (Kcl 40 Meq Premix Inj) 40 meq in 100 mls @ 25 mls/hr IV.SIG UNSCH PRN PRN Reason: For Potassium 3.3 - 3.5 mEq/L Potassium Chloride (Kcl 20 Meq Premix Inj) 20 meq in 100 mls @ 50 mls/hr IV.SIG Q2H PRN PRN Reason: For Potassium 2.8 - 3.2 mEq/L Potassium Phosphate 30 mmol/ (Sodium Chloride) 260 mls @ 42 mls/hr IV.SIG UNSCH PRN PRN Reason: SEE LABEL COMMENTS Sodium Phosphate 30 mmol/ (Sodium Chloride) 260 mls @ 42 mls/hr IV.SIG UNSCH PRN PRN Reason: For Phosphorus < 2.5 mg/dL Potassium Chloride (Kcl 20 Meq Premix Inj) 20 meq in 100 mls @ 50 mls/hr IV.SIG Q2H PRN PRN Reason: For Potassium 3.3 - 3.5 mEq/L Dexmedetomidine HCl 200 mcg/ (Sodium Chloride) 50 mls @ 2.94 mls/hr IV.CONT TITRATE PRN; Protocol PRN Reason: Per Protocol Insulin Aspart (Novolog Insulin Correctional Sugar Inj) 0 unit SQ Q6HR JENNIE; Protocol Last Admin: 06/04/18 12:05 Dose: Not Given Lactulose (Lactulose Liq) 30 ml PO DAILY PRN PRN Reason: SEVERE CONSITIPATION Magnesium Oxide (Mag-Ox) 800 mg PO UNSCH PRN PRN Reason: For Magnesium 1.2 - 1.6 mg/dL Ondansetron HCl (Zofran Odt) 4 mg PO Q4H PRN PRN Reason: NAUSEA Last Admin: 06/03/18 20:41 Dose: 4 mg Potassium Bicarb/Potassium Chloride (K-Lyte Cl Eff) 50 meq PO UNSCH PRN PRN Reason: For Potassium 3.3 - 3.5 mEq/L Potassium Phosphate (K-Phos Original) 2,000 mg PO Q4H PRN PRN Reason: Phosphorus Less Than 2.5 mg/dL Potassium Phosphate (K-Phos Original) 2,000 mg PO UNSCH PRN PRN Reason: SEE LABEL COMMENTS Senna/Docusate Sodium (Rain-Colace) 1 tab PO BID [facility] Last Admin: 06/04/18 08:08 Dose: 1 tab Sennosides (Senokot) 17.2 mg PO Q12H PRN PRN Reason: Moderate Constipation Sodium Chloride (Ns Flush) 2 ml IV.FLUSH BID [facility] Last Admin: 06/04/18 08:09 Dose: 2 ml Sodium Chloride (Ns Flush) 2 ml IV.FLUSH PRN PRN PRN Reason: FLUSH AFTER USING IV ACCESS Allergies Allergy/AdvReac Type Severity Reaction Status Date / Time No Allergy Information Allergy Verified 06/03/18 08:16 Available Home Medications Medication Instructions Recorded Confirmed Type Unable to Obtain Home Meds 06/03/18 06/03/18 History Exam Vital signs: Vital Signs 06/03/18 17:17 06/03/18 17:40 06/03/18 18:00 Temperature Pulse Rate 96 H 77 Respiratory Rate 41 H 20 Blood Pressure 133/74 118/58 L Pulse Oximetry 100 100 100 06/03/18 18:59 06/03/18 19:00 06/03/18 20:00 Temperature 98.1 F Pulse Rate 91 H 93 H 77 Respiratory Rate 23 21 17 Blood Pressure 111/61 116/53 L Pulse Oximetry 99 100 96 06/03/18 21:00 06/03/18 21:05 06/03/18 22:00 Temperature Pulse Rate 85 72 Respiratory Rate 25 H 22 Blood Pressure 114/57 L 112/54 L Pulse Oximetry 100 96 100 06/03/18 23:00 06/04/18 00:00 06/04/18 01:00 Temperature 98.7 F Pulse Rate 64 81 96 H Respiratory Rate 14 14 13 Blood Pressure 124/64 115/54 L 116/61 Pulse Oximetry 100 99 100 06/04/18 02:00 06/04/18 03:00 06/04/18 04:00 Temperature 98.4 F Pulse Rate 74 59 L 87 Respiratory Rate 13 22 36 H Blood Pressure 109/55 L 107/59 L 131/54 L Pulse Oximetry 99 100 100 06/04/18 05:00 06/04/18 06:00 06/04/18 07:00 Temperature 98.4 F 98.2 F Pulse Rate 76 78 83 Respiratory Rate 11 L 19 12 Blood Pressure 117/63 114/63 103/53 L Pulse Oximetry 100 100 100 06/04/18 08:00 06/04/18 09:00 06/04/18 10:00 Temperature 98.7 F Pulse Rate 96 H 82 90 Respiratory Rate 25 H 21 25 H Blood Pressure 107/63 124/59 L 124/65 Pulse Oximetry 100 100 100 06/04/18 11:00 06/04/18 12:00 06/04/18 13:00 Temperature 98.7 F Pulse Rate 81 90 88 Respiratory Rate 13 29 H 20 Blood Pressure 125/63 129/61 121/79 Pulse Oximetry 100 100 99 06/04/18 14:00 06/04/18 15:00 06/04/18 16:00 Temperature Pulse Rate 83 72 69 Respiratory Rate 18 13 Blood Pressure 123/73 127/60 Pulse Oximetry 100 98 Intake & Output 06/03/18 06/04/18 06/04/18 18:59 06:59 18:59 Intake Total 550 / 550 1600 / 1600 1000 / 1000 Output Total 600 / 600 650 / 650 Balance -50 / -50 950 / 950 1000 / 1000 Weight 58.967 kg 74.096 kg Intake: IV 1000 / 1000 1000 / 1000 NS Inj 1,000 ML @ 84 mls/hr IV. 1000 / 1000 1000 / 1000 CONT .[id number] [facility] Rx#:[id number] Oral 550 / 550 600 / 600 Output: Urine Amount (Catheter) 600 / 600 650 / 650 Indwelling Urethral Catheter 600 / 600 650 / 650 Other: Date of Last Bowel Movement 06/02/18 06/02/18 06/02/18 - Constitutional no acute distress - Routine HEENT Exam Head: Present: normocephalic, atraumatic - Routine Respiratory Exam Present: CTA bilaterally - Routine Cardiovascular Exam Present: RRR - Routine Abdominal Exam Present: soft Comments: Uterus 4 cm below the umbilicus - Routine Neurological Exam Present: alert, oriented X3 Results - Labs CBC & Chem 7: 06/04/18 04:32 06/04/18 04:32 Labs: Laboratory Results - last 24 hr 06/03/18 06/03/18 06/03/18 18:00 18:30 19:57 WBC RBC Hgb Hct MCV MCH MCHC RDW Plt Count MPV Neut % (Auto) Lymph % (Auto) Borden % (Auto) Eos % (Auto) Baso % (Auto) Neut # (Auto) Lymph # (Auto) Borden # (Auto) Eos # (Auto) Baso # (Auto) WBC Differential Differential Comment PT INR APTT Sodium Potassium Chloride Carbon Dioxide Anion Gap BUN Creatinine Estimated GFR POC Glucose 89 Random Glucose Calcium Phosphorus Magnesium Total Bilirubin AST ALT Alkaline Phosphatase Total Protein Albumin Nasal Screen MRSA (PCR) Not detected Salicylates Less than 1.7 L 06/04/18 06/04/18 06/04/18 00:07 04:32 04:32 WBC 11.4 H RBC 2.60 L Hgb 8.2 L Hct 23.8 L MCV 91.6 MCH 31.7 MCHC 34.6 RDW 15.0 Plt Count 229 MPV 8.6 Neut % (Auto) 72.4 H Lymph % (Auto) 17.7 Borden % (Auto) 7.0 Eos % (Auto) 2.5 Baso % (Auto) 0.4 Neut # (Auto) 8.3 H Lymph # (Auto) 2.0 Borden # (Auto) 0.8 Eos # (Auto) 0.3 Baso # (Auto) 0.0 WBC Differential . Differential Comment Auto diff final PT 10.5 INR 1.0 APTT 25.0 Sodium Potassium Chloride Carbon Dioxide Anion Gap BUN Creatinine Estimated GFR POC Glucose 88 Random Glucose Calcium Phosphorus Magnesium Total Bilirubin AST ALT Alkaline Phosphatase Total Protein Albumin Nasal Screen MRSA (PCR) Salicylates 06/04/18 06/04/18 06/04/18 04:32 12:04 16:49 WBC RBC Hgb Hct MCV MCH MCHC RDW Plt Count MPV Neut % (Auto) Lymph % (Auto) Borden % (Auto) Eos % (Auto) Baso % (Auto) Neut # (Auto) Lymph # (Auto) Borden # (Auto) Eos # (Auto) Baso # (Auto) WBC Differential Differential Comment PT INR APTT Sodium 143 Potassium 3.1 L Chloride 111 H Carbon Dioxide 21.6 Anion Gap 10 BUN 5 L Creatinine 0.42 L Estimated GFR Greater than 89 POC Glucose 100 120 H Random Glucose 86 Calcium 7.5 L D Phosphorus 2.0 L Magnesium 2.0 Total Bilirubin 0.3 AST 22 ALT 20 Alkaline Phosphatase 55 Total Protein 5.0 L D Albumin 2.5 L D Nasal Screen MRSA (PCR) Salicylates Caprini VTE Risk Assessment Caprini VTE Risk Assessment: No/Low Risk (score <= 1) VTE Pharmacological Exception Reason: High risk for bleeding Caprini Risk Assessment Model: Point Value = 1 Point Value = 2 Point Value = 3 Point Value = 5 Age 41-60 Minor surgery BMI > 25 kg/m2 Swollen legs Varicose veins or History of unexplained or recurrent spontaneous Oral contraceptives or hormone replacement Sepsis (< 1 month) Serious lung disease, including pneumonia (< 1 month) Abnormal pulmonary function Acute myocardial infarction Congestive heart failure (< 1 month) History of inflammatory bowel disease Medical patient at bed rest Age 61-74 Arthroscopic surgery Major open surgery (> 45 min) Laparoscopic surgery (> 45 min) Malignancy Confined to bed (> 72 hours) Immobilizing plaster cast Central venous access Age >= 75 History of VTE Family history of VTE Factor V Leiden Prothrombin [id number] Lupus anticoagulant Anticardiolipin antibodies Elevated serum homocysteine Heparin-induced thrombocytopenia Other congenital or acquired thrombophilia Stroke (< 1 month) Elective arthroplasty Hip, pelvis, or leg fracture Acute spinal cord injury (< 1 month) Prophylaxis Regimen: Total Risk Factor Score Risk Level Prophylaxis Regimen 0-1 Low Early ambulation 2 Moderate Order ONE of the following: *Sequential Compression Device (SCD) *Heparin 5000 units SQ BID 3-4 Higher Order ONE of the following medications: *Heparin 5000 units SQ TID *Enoxaparin/Lovenox 40 mg SQ daily (WT < 150 kg, CrCl > 30 mL/min) *Enoxaparin/Lovenox 30 mg SQ daily (WT < 150 kg, CrCl > 10-29 mL/min) *Enoxaparin/Lovenox 30 mg SQ BID (WT < 150 kg, CrCl > 30 mL/min) AND/OR *Sequential Compression Device (SCD) 5 or more Highest Order ONE of the following medications: *Heparin 5000 units SQ TID (Preferred with Epidurals) *Enoxaparin/Lovenox 40 mg SQ daily (WT < 150 kg, CrCl > 30 mL/min) *Enoxaparin/Lovenox 30 mg SQ daily (WT < 150 kg, CrCl > 10-29 mL/min) *Enoxaparin/Lovenox 30 mg SQ BID (WT < 150 kg, CrCl > 30 mL/min) AND *Sequential Compression Device (SCD) Assessment and Plan - Diagnosis (1) Twin gestation in second trimester Code(s): O30.002 - Twin , unspecified number of placenta and unspecified number of amniotic sacs, second trimester Status: Acute (2) 16 weeks gestation of Code(s): Z3A.16 - 16 weeks gestation of Status: Acute (3) Drug overdose Code(s): T50.901A - Poisoning by unspecified drugs, medicaments and biological substances, accidental (unintentional), initial encounter Status: Acute - Plan 16 week twins in a primiparous patient who is admitted in the unit for a severe drug overdose almost lethal, she is now greatly improved and having no obstetric problem, she knew she was when she was before the regular dose but did not know she had twins. Has had a level 2 ultrasound through [facility] which shows twin A is 17 week 3 day size and twin B is 18 week 1 day size normal amniotic fluid general anatomy scan within normal limits, twin A is breech twin B is transverse. Post placenta is posterior grade 1 no previa. Ultrasound findings are consistent with her LMP dates of a due date EDC 11/14/2018. Maternal- medicine signed off on that evaluation and ultrasound Patient states she artery has care arranged and was supposed to get an ultrasound through her [facility] tomorrow and she expects she may be discharged from here tomorrow, plan to draw lab prior to discharge. She was given a pamphlet on the [place] [facility] in case she has a problem with current arrangements. She also needs case management social science teacher to try and help her get into the project warmer some other rehab program so this does not happen again that she understands that now that she is with twins she definitely needs to be in rehab and not taking IV drugs etc.
[2018-06-04 23:00] LABS: Potassium 3.3 meq/L (3.5-5.1)
[2018-06-04 23:08] LABS: Phosphorus 3.1 mg/dL (2.5-4.9)
[2018-06-05 00:03] LABS: Hepatitis A IgM Antibody Nonreactive (Nonreactive)
[2018-06-05 00:05] LABS: Hepatitits B Surface Antigen Nonreactive (Nonreactive)
[2018-06-05] MEDS: Insulin NovoLOG Aspart Correctional Sugar Inj SQ SCH ×2 (02:42→05:23)
[2018-06-05] MEDS: Chlorhexidine Gluconate 2% 1 Pack (2 Cloths) TOPICAL SCH (05:21)
[2018-06-05 06:14] VITALS: O2SAT 100
[2018-06-05] MEDS: Famotidine PF Inj 20 MG/2 ML Vial IV.PUSH SCH (09:02)
[2018-06-05] MEDS: Senna/Docusate Sodium 8.6/50 MG Tablet PO SCH (09:02)
[2018-06-05] MEDS: Hypromellose 0.3% Opth Gel 10 GM Bottle EACH EYE SCH (09:03)
[2018-06-05 10:14] LABS: Baso % (Auto) 0.4 % (0.0-2.0); Eos # (Auto) 0.3 th/mm3 (0.0-0.4); Hematocrit 25.1 % (35.0-46.0); Hemoglobin 8.7 gm/dL (11.6-15.3); Lymph # (Auto) 1.3 th/mm3 (1.0-4.8); Lymph % (Auto) 12.2 % (9.0-44.0); Mean Corpuscular HGB Conc 34.7 % (32.0-36.0); Mean Corpuscular Volume 92.2 fL (80.0-100.0); Mean Platelet Volume 8.4 fL (7.0-11.0); Mono # (Auto) 0.7 th/mm3 (0.0-0.9); Mono % (Auto) 6.3 % (0.0-8.0); Neut # (Auto) 8.2 th/mm3 (1.8-7.7); Neut % (Auto) 78.1 % (16.0-70.0); Platelet Count 214 th/mm3 (150-450); Red Blood Count 2.72 mil/mm3 (4.00-5.30); Red Cell Distribution Width 14.9 % (11.6-17.2); White Blood Count 10.5 th/mm3 (4.0-11.0)
[2018-06-05 10:27] VITALS: BP 151/68; TEMP 97.1
[2018-06-05 10:36] LABS: Alanine Aminotransferase 21 U/L (10-53); Albumin 2.4 g/dL (3.4-5.0); Anion Gap 7 meq/L (5-15); Aspartate Aminotransferase 15 U/L (15-37); Blood Urea Nitrogen 4 mg/dL (7-18); Calcium 7.9 mg/dL (8.5-10.1); Carbon Dioxide 25.7 meq/L (21.0-32.0); Chloride 110 meq/L (98-107); Glomerular Filtration Rate Greater Than 89 mL/min (>89); Glucose,Random 115 mg/dL (74-106); Magnesium 1.6 mg/dL (1.5-2.5); Phosphorus 3.1 mg/dL (2.5-4.9); Potassium 3.5 meq/L (3.5-5.1); Sodium 143 meq/L (136-145)
[2018-06-05 10:37] LABS: Alkaline Phosphatase 60 U/L (45-117); Total Protein 5.4 g/dL (6.4-8.2)
--- NOTE | 2018-06-05 10:55 | P.DS ---
Date of admission: 06/03/18 09:19 Primary care physician: UNKNOWN Brief History from admission: This is a 23-year-old female. Actual name is Kay Duran. Date of admission 06/03/2018. Past medical history includes previous admissions with psychosis previously on olanzapine 5 mg daily 2014. Patient is currently around 4 months according to boyfriend. Patient does have track ballard in the left upper extremity laceration to her left pinky which is currently being sutured. Also severe valdivia on her abdomen and multiple tattoos. Patient presented to [facility] ED after taking an unknown amount of GHB and methamphetamine according to reports. Patient was intubated using 20 mg etomidate and 100 mg succinylcholine. Laceration left index finger currently being sutured and tdp will be provided. Patient was bradycardic requiring 1 mg of atropine. Bedside ultrasound was field twin pregnancies. [employer] will be counsulted for recommendations. heart tones in ICU. Patient is currently intubated and sedated on a propofol drip DS: Summary Hospital Course: Mrs. Duran is a 23-year-old female. She is admitted secondary to acute drug overdose and respiratory failure. GHP and methamphetamines are suspected based on labs. Patient was initially requiring intubation mechanical ventilation. She has since been extubated. Electrolytes were off balance and these have been corrected. This morning she has a respiratory status back to baseline and has correction all of her lecture lites. She is medically stable and cleared for discharge home today. She is recommended to follow-up with outpatient obstetrics as directed. She has also been encouraged to pursue drug rehabilitation to avoid further episodes of drug abuse. Discharge home today. - Time Spent with Patient Total time spent providing and/or coordinating discharge services: Less than 30 minutes - Quality: VTE Deep Vein Thrombosis/Pulmonary Embolism Present on Admission: No Exam Vital signs: Vital Signs 06/04/18 11:00 06/04/18 12:00 06/04/18 13:00 Temperature 98.7 F Pulse Rate 81 90 88 Respiratory Rate 13 29 H 20 Blood Pressure 125/63 129/61 121/79 Pulse Oximetry 100 100 99 06/04/18 14:00 06/04/18 15:00 06/04/18 16:00 Temperature 98.9 F Pulse Rate 83 72 69 Respiratory Rate 18 13 16 Blood Pressure 123/73 127/60 108/54 L Pulse Oximetry 100 98 100 06/04/18 17:00 06/04/18 18:00 06/04/18 19:00 Temperature 98.6 F Pulse Rate 81 85 88 Respiratory Rate 21 14 20 Blood Pressure 124/65 158/72 H 134/62 Pulse Oximetry 100 100 99 06/04/18 20:00 06/04/18 20:23 06/04/18 21:00 Temperature Pulse Rate 78 85 Respiratory Rate 14 27 H Blood Pressure 134/62 132/60 Pulse Oximetry 100 99 100 06/04/18 22:00 06/04/18 23:00 06/05/18 00:00 Temperature 98.7 F Pulse Rate 100 H 75 73 Respiratory Rate 21 13 13 Blood Pressure 129/72 126/60 125/62 Pulse Oximetry 98 100 98 06/05/18 01:00 06/05/18 02:00 06/05/18 03:00 Temperature Pulse Rate 57 L 83 73 Respiratory Rate 18 17 15 Blood Pressure 123/84 132/72 136/68 Pulse Oximetry 100 99 100 06/05/18 04:00 06/05/18 05:00 06/05/18 06:00 Temperature 98.8 F Pulse Rate 82 76 73 Respiratory Rate 25 H 15 14 Blood Pressure 174/89 H 121/66 124/68 Pulse Oximetry 100 99 100 06/05/18 07:00 06/05/18 08:00 06/05/18 08:51 Temperature 97.1 F L Pulse Rate 71 80 Respiratory Rate 13 13 Blood Pressure 125/59 L 126/64 Pulse Oximetry 100 100 100 06/05/18 09:00 06/05/18 10:00 06/05/18 10:01 Temperature Pulse Rate 83 80 71 Respiratory Rate 29 H 14 13 Blood Pressure 119/71 151/68 H Pulse Oximetry 100 100 100 Intake & Output 06/04/18 06/05/18 06/05/18 18:59 06:59 18:59 Intake Total 1000 / 1000 800 / 800 Output Total 1300 / 1300 Balance -300 / -300 800 / 800 Intake: IV 1000 / 1000 NS Inj 1,000 ML @ 84 mls/hr IV. 1000 / 1000 CONT .[id number] JENNIE Rx#:[id number] Oral 800 / 800 Output: Urine Amount (Catheter) 1300 / 1300 Indwelling Urethral Catheter 1300 / 1300 Other: # Voids 2 4 Date of Last Bowel Movement 06/02/18 06/02/18 06/02/18 Narrative: Intubation and mechanical ventilation Extubation Results Procedures completed during hospitalization: intubation, mechanical ventilation, extubation Labs on day of discharge: Labs from last 24 hours 06/05/18 06/05/18 06/05/18 09:44 09:44 05:23 WBC 10.5 RBC 2.72 L Hgb 8.7 L Hct 25.1 L MCV 92.2 MCH 32.0 MCHC 34.7 RDW 14.9 Plt Count 214 MPV 8.4 Neut % (Auto) 78.1 H Lymph % (Auto) 12.2 [place] % (Auto) 6.3 Eos % (Auto) 3.0 Baso % (Auto) 0.4 Neut # (Auto) 8.2 H Lymph # (Auto) 1.3 [place] # (Auto) 0.7 Eos # (Auto) 0.3 Baso # (Auto) 0.0 WBC Differential . Differential Comment Auto diff final Sodium 143 Potassium 3.5 Chloride 110 H Carbon Dioxide 25.7 Anion Gap 7 BUN 4 L Creatinine 0.48 L Estimated GFR Greater than 89 POC Glucose 135 H Random Glucose 115 H Calcium 7.9 L Phosphorus 3.1 Magnesium 1.6 Total Bilirubin 0.2 AST 15 ALT 21 Alkaline Phosphatase 60 Total Protein 5.4 L Albumin 2.4 L RPR Hepatitis A IgM Ab Hep Bs Antigen Hep B Core IgM Ab Hep C IgG Ab HIV 1&2 Ab/P24 Ag 4thGn Rubella Immunity Screen Rubella Ab, Quant Blood Type Blood Type Recheck Antibody Screen 06/05/18 06/04/18 06/04/18 00:31 21:50 21:50 WBC RBC Hgb Hct MCV MCH MCHC RDW Plt Count MPV Neut % (Auto) Lymph % (Auto) [place] % (Auto) Eos % (Auto) Baso % (Auto) Neut # (Auto) Lymph # (Auto) [place] # (Auto) Eos # (Auto) Baso # (Auto) WBC Differential Differential Comment Sodium Potassium Chloride Carbon Dioxide Anion Gap BUN Creatinine Estimated GFR POC Glucose 99 Random Glucose Calcium Phosphorus Magnesium Total Bilirubin AST ALT Alkaline Phosphatase Total Protein Albumin RPR Nonreactive Hepatitis A IgM Ab Hep Bs Antigen Hep B Core IgM Ab Hep C IgG Ab HIV 1&2 Ab/P24 Ag 4thGn Rubella Immunity Screen Rubella Ab, Quant Blood Type B Positive Blood Type Recheck Required Antibody Screen Negative 06/04/18 06/04/18 06/04/18 21:50 21:50 21:50 WBC RBC Hgb Hct MCV MCH MCHC RDW Plt Count MPV Neut % (Auto) Lymph % (Auto) [place] % (Auto) Eos % (Auto) Baso % (Auto) Neut # (Auto) Lymph # (Auto) [place] # (Auto) Eos # (Auto) Baso # (Auto) WBC Differential Differential Comment Sodium Potassium 3.3 L Chloride Carbon Dioxide Anion Gap BUN Creatinine Estimated GFR POC Glucose Random Glucose Calcium Phosphorus 3.1 D Magnesium Total Bilirubin AST ALT Alkaline Phosphatase Total Protein Albumin RPR Hepatitis A IgM Ab Nonreactive Hep Bs Antigen Nonreactive Hep B Core IgM Ab Nonreactive Hep C IgG Ab Nonreactive HIV 1&2 Ab/P24 Ag 4thGn Nonreactive Rubella Immunity Screen Immune Rubella Ab, Quant Greater than 500.0 H Blood Type Blood Type Recheck Antibody Screen 06/04/18 06/04/18 16:49 12:04 WBC RBC Hgb Hct MCV MCH MCHC RDW Plt Count MPV Neut % (Auto) Lymph % (Auto) [place] % (Auto) Eos % (Auto) Baso % (Auto) Neut # (Auto) Lymph # (Auto) [place] # (Auto) Eos # (Auto) Baso # (Auto) WBC Differential Differential Comment Sodium Potassium Chloride Carbon Dioxide Anion Gap BUN Creatinine Estimated GFR POC Glucose 120 H 100 Random Glucose Calcium Phosphorus Magnesium Total Bilirubin AST ALT Alkaline Phosphatase Total Protein Albumin RPR Hepatitis A IgM Ab Hep Bs Antigen Hep B Core IgM Ab Hep C IgG Ab HIV 1&2 Ab/P24 Ag 4thGn Rubella Immunity Screen Rubella Ab, Quant Blood Type Blood Type Recheck Antibody Screen Discharge Plan - Discharge Disposition Patient Disposition: 01 Discharge Home - Discharge Condition Condition: Stable - Discharge Order Discharge Orders: Discharge Order (Routine); Ordered 06/05/18 Ordered By: Sav Jameson - Discharge Details Anticipated Discharge Date: 06/05/18 - Physicians Team Primary Care Provider: UNKNOWN, Attending Provider: Sav Jameson Other Providers: Dipak Vargas MD ; Momo Orosco MD ; [employer], Insurance
[2018-06-05 12:01] VITALS: PULSE 95; RESP 28
== END 2018-06-05 12:40 | disposition home or self-care (01) ==
LOC: NEPE 07:50 → EDBD 09:19 → NEDA 09:19 → HIMC 10:00
PROVIDERS: ADMIT Hospitalist; ATTEND Hospitalist

== ENCOUNTER 2018-07-09 18:01 | Inpatient (IN) ==
[2018-07-09] MEDS ORDERED: fentaNYL Citrate Inj 100 MCG/2 ML Ampul IV.PUSH PRN ×2 (19:26)
[2018-07-09] MEDS ORDERED: Oxytocin 30 Units/500ml Premix 30 UNITS/500 ML BAG IV.SIG ONE (19:26)
[2018-07-09] MEDS ORDERED: Naloxone Inj 0.4 MG/ML Vial IV.PUSH PRN (19:26)
--- NOTE | 2018-07-09 19:26 | P.HPOB ---
History of Present Illness Primary Care Physician: NOT REQUIRED Chief Complaint: Twin demise History of Present Illness: Patient is a 23 yo who presents with twin demise at 21 weeks and 5 days. Pt has EDC 11-14-2018, based on LMP of 02-07-2018. This is c/w ultrasound done during hospitalization here on 06-03-2018 . Pt had initial care with [facility] . She transferred care to Dr Patrick and was seen for first time yesterday for scheduled initial appointment, and no heart tones were noted by Doppler. Patient had ultrasound that confirmed twin demise. Pt was admitted in ICU here 06/03/2018 for GHB overdose, and respiratory failure. Pt was intubated after an unknown amount of GHB and methamphetamine. She had her left pinky laceration sutured. At the time she stated that that was her first use of GHB, but admitted weekly IV methamphetamine use. OB ultrasound done 06-03-2018 showed twin viable measuring 17.3 and 16.5 respectively, c/w stated LMP of 02-07-2018. She also complains of pain in both hands, for which she has previously been seen in the ER She denies any recent fevers, or vaginal bleeding or leaking. Weeks Gestation:: 21 Para: 0 : 1 - Inpatient Certification I certify that the inpatient services were ordered in accordance with Medicare regulations governing the order. This includes certification that hospital inpatient services are reasonable and necessary and in the case of services not specified as inpatient-only under 42 CFR 419.22(n), that they are appropriately provided as inpatient services in accordance to with the 2-midnight benchmark under 43 CFR 412.3(e) Estimated Total Length of Stay (Days): 3 Plans for Post Hospital Care: Home Review of Systems All other systems reviewed negative except as stated in HPI PMFSH - History History Provided By: Patient - Medical / Surgical Hx Neg / Unobtainable Surgical History: No Previous Surgery - Medical History Medical History: Medical History (Last Reviewed 07/07/18 @ 12:33 by NURIA Nur) Medical history unknown Surgical history unknown - Surgical History Surgical History: Surgical History (Last Reviewed 06/04/18 @ 15:31 by Tiana Brown) No significant past surgical history - Family History Family History: Family History (Last Reviewed 06/04/18 @ 15:31 by Tiana Brown) Other No significant family history - Social History I have reviewed the patient's Social History: Yes - Tobacco History Second Hand Smoke Exposure: Yes Tobacco Use In Past 30 Days: Yes Smoking Status: Heavy tobacco smoker (1/2 PPD) Tobacco Type: Cigarettes - Alcohol History How Often Do You Have a Drink Containing Alcohol: Never - Substance Use History Substance History: Active Abuse (pt denies recent use, but was admitted in ICU with GHB overdose, and admitted methamphetamine use.) - Substance Use Type Methamphetamine Status: Active Route Used: Intravenously - Travel History History of Recent Travel: No Medications and Allergies Allergies Allergy/AdvReac Type Severity Reaction Status Date / Time bupropion [From Wellbutrin] Allergy Unknown Anaphylaxis Verified 07/07/18 12:19 Home Medications Medication Instructions Recorded Confirmed Type No Known Home Medications 07/09/18 07/09/18 History Exam Vital signs: Vital Signs 07/09/18 18:30 Temperature 98.9 F Pulse Rate 82 Respiratory Rate 18 Blood Pressure 125/89 Narrative: GENERAL: Well-nourished, well-developed patient. SKIN: Warm and dry. HEAD: Normocephalic and atraumatic. EYES: No scleral icterus. No injection or drainage. ENT: No nasal drainage noted. Mucous membranes pink. Airway patent. NECK: Supple, trachea midline. No JVD. CARDIOVASCULAR: Regular rate and rhythm without murmurs, gallops, or rubs. RESPIRATORY: Breath sounds equal bilaterally. No accessory muscle use. BREASTS: Bilateral exam showed no masses , no retractions, no nipple discharge. ABDOMEN/GI: Abdomen soft, non-tender, bowel sounds present, no rebound, no guarding Gravid to [21] weeks size Fundal Height: [21] GENITOURINARY: External Genitalia: intact and normal in appearance BUS glands: [wnl] Cervix: [firm] Dilatation: [closed] Effacement: [not effaced] Station: [nothing in pelvis] Presentation: [-] twin A presenting vertex Membranes: [intact] Uterine Contractions: [none] MISOPROSTIL 800mcg inserted in vagina next to cervix. FHT's: Category: [-] No heart activity Baseline: [-] Reactive: [-] Variability: [-] Decels: [-] EXTREMITIES: No cyanosis or edema. BACK: Nontender without obvious deformity. No CVA tenderness. NEUROLOGICAL: Awake and alert. Motor and sensory grossly within normal limits. Five out of 5 muscle strength in all muscle groups. Normal speech. - Constitutional mild distress, agitated - Routine HEENT Exam Head: Present: normocephalic Eye: Present: PERRL ENT: Present: mucous membranes moist - Routine Neck Exam Present: supple - Routine Respiratory Exam Present: CTA bilaterally - Routine Cardiovascular Exam Present: RRR - Routine Abdominal Exam Present: soft - Routine Neurological Exam Present: alert, oriented X3, CN II-XII intact, normal reflexes Results - Labs CBC & Chem 7: 07/09/18 20:09 07/09/18 20:09 Caprini VTE Risk Assessment Caprini VTE Risk Assessment: No/Low Risk (score <= 1) Caprini Risk Assessment Model: Point Value = 1 Point Value = 2 Point Value = 3 Point Value = 5 Age 41-60 Minor surgery BMI > 25 kg/m2 Swollen legs Varicose veins or History of unexplained or recurrent spontaneous Oral contraceptives or hormone replacement Sepsis (< 1 month) Serious lung disease, including pneumonia (< 1 month) Abnormal pulmonary function Acute myocardial infarction Congestive heart failure (< 1 month) History of inflammatory bowel disease Medical patient at bed rest Age 61-74 Arthroscopic surgery Major open surgery (> 45 min) Laparoscopic surgery (> 45 min) Malignancy Confined to bed (> 72 hours) Immobilizing plaster cast Central venous access Age >= 75 History of VTE Family history of VTE Factor V Leiden Prothrombin [id number] Lupus anticoagulant Anticardiolipin antibodies Elevated serum homocysteine Heparin-induced thrombocytopenia Other congenital or acquired thrombophilia Stroke (< 1 month) Elective arthroplasty Hip, pelvis, or leg fracture Acute spinal cord injury (< 1 month) Prophylaxis Regimen: Total Risk Factor Score Risk Level Prophylaxis Regimen 0-1 Low Early ambulation 2 Moderate Order ONE of the following: *Sequential Compression Device (SCD) *Heparin 5000 units SQ BID 3-4 Higher Order ONE of the following medications: *Heparin 5000 units SQ TID *Enoxaparin/Lovenox 40 mg SQ daily (WT < 150 kg, CrCl > 30 mL/min) *Enoxaparin/Lovenox 30 mg SQ daily (WT < 150 kg, CrCl > 10-29 mL/min) *Enoxaparin/Lovenox 30 mg SQ BID (WT < 150 kg, CrCl > 30 mL/min) AND/OR *Sequential Compression Device (SCD) 5 or more Highest Order ONE of the following medications: *Heparin 5000 units SQ TID (Preferred with Epidurals) *Enoxaparin/Lovenox 40 mg SQ daily (WT < 150 kg, CrCl > 30 mL/min) *Enoxaparin/Lovenox 30 mg SQ daily (WT < 150 kg, CrCl > 10-29 mL/min) *Enoxaparin/Lovenox 30 mg SQ BID (WT < 150 kg, CrCl > 30 mL/min) AND *Sequential Compression Device (SCD) Assessment and Plan - Diagnosis (1) with 21 completed weeks gestation Code(s): Z3A.21 - 21 weeks gestation of Status: Acute (2) Twin Code(s): O30.009 - Twin , unspecified number of placenta and unspecified number of amniotic sacs, unspecified trimester Status: Acute (3) demise before 22 weeks with retention of fetus Code(s): O36.4XX0 - Maternal care for intrauterine , not applicable or unspecified Status: Acute Plan: Plan for labor induction with CYTOTEC 800mcg intially, then CYTOTEC 400mg PO Q 6 hourly subsequently. (4) Substance abuse affecting in second trimester, antepartum Code(s): O99.322 - Drug use complicating , second trimester Status: Acute Plan: Prescribed Ativan 0.5 mg PO q 6 hourly
[2018-07-09] MEDS ORDERED: Citric Acid/Sodium Citrate Liq 30 ML UDC PO SCH (19:30)
[2018-07-09] MEDS ORDERED: LORazepam 0.5 MG Tablet PO PRN (19:39)
[2018-07-09] MEDS ORDERED: miSOPROStol 200 MCG Tablet VAGINAL ONE (20:30)
[2018-07-09 20:53] LABS: Baso # (Auto) 0.1 th/mm3 (0.0-0.2); Baso % (Auto) 0.9 % (0.0-2.0); Eos # (Auto) 0.3 th/mm3 (0.0-0.4); Eos % (Auto) 3.1 % (0.0-4.0); Hematocrit 32.9 % (35.0-46.0); Hemoglobin 11.1 gm/dL (11.6-15.3); Lymph % (Auto) 28.2 % (9.0-44.0); Mean Corpuscular HGB Conc 33.9 % (32.0-36.0); Mean Corpuscular Hemoglobin 31.5 pg (27.0-34.0); Mean Platelet Volume 8.6 fL (7.0-11.0); Mono # (Auto) 0.8 th/mm3 (0.0-0.9); Mono % (Auto) 7.5 % (0.0-8.0); Neut # (Auto) 6.3 th/mm3 (1.8-7.7); Neut % (Auto) 60.3 % (16.0-70.0); Platelet Count 305 th/mm3 (150-450); Red Blood Count 3.54 mil/mm3 (4.00-5.30); Red Cell Distribution Width 14.1 % (11.6-17.2); White Blood Count 10.5 th/mm3 (4.0-11.0)
[2018-07-09 21:00] LABS: Bacteria,Urine Moderate /hpf; Bilirubin,Urine Negative (Negative); Clarity,Urine Hazy (Clear); Color,Urine Yellow (Yellw/Straw); Glucose,Urine (UA) Negative (Negative); Hyaline Casts,Urine 1 /lpf (0-3); Leukocyte Esterase,Urine Trace (Negative); Mucus,Urine Few /lpf (Occasional); Nitrite,Urine Negative (Negative); Squamous Epithelial Cell,Urine 13 /hpf (0-5)
[2018-07-09 21:08] LABS: Benzodiazepine Urine With Conf Neg (Neg)
[2018-07-09 21:11] LABS: Albumin 3.4 g/dL (3.4-5.0); Anion Gap 12 meq/L (5-15); Aspartate Aminotransferase 17 U/L (15-37); Blood Urea Nitrogen 8 mg/dL (7-18); Calcium 8.9 mg/dL (8.5-10.1); Carbon Dioxide 22.2 meq/L (21.0-32.0); Chloride 107 meq/L (98-107); Glomerular Filtration Rate Greater Than 89 mL/min (>89); Glucose,Random 108 mg/dL (74-106); Potassium 3.1 meq/L (3.5-5.1); Sodium 141 meq/L (136-145)
[2018-07-09 21:12] LABS: Alanine Aminotransferase 21 U/L (10-53)
[2018-07-09 21:13] LABS: Amphetamine Urine With Conf Pos (Neg)
[2018-07-09 21:15] LABS: Alkaline Phosphatase 95 U/L (45-117); Total Protein 6.7 g/dL (6.4-8.2)
[2018-07-10] MEDS: miSOPROStol 200 MCG Tablet PO SCH ×2 (01:37→09:57)
[2018-07-10] MEDS ORDERED: Oxytocin 30 Units/500ml Premix 30 UNITS/500 ML BAG ONE (04:05)
[2018-07-10] MEDS ORDERED: Acetaminophen 325 MG Tablet PO PRN (04:18)
[2018-07-10] MEDS ORDERED: Bisacodyl 10 MG Supp RECTAL PRN (04:18)
[2018-07-10] MEDS ORDERED: Witch Hazel 50%/Glyderin 12.5% 40 Pad Jar RECTAL PRN (04:18)
[2018-07-10] MEDS ORDERED: Oxytocin 30 Units/500ml Premix 30 UNITS/500 ML BAG IV.CONT PRN (04:18)
[2018-07-10] MEDS ORDERED: Zolpidem Tartrate 5 MG Tablet PO PRN (04:18)
[2018-07-10] MEDS ORDERED: Benzocaine 20% Top Spray 60 ML Can TOPICAL PRN (04:18)
[2018-07-10] MEDS ORDERED: Naloxone Inj 0.4 MG/ML Vial IV.PUSH PRN (04:18)
--- NOTE | 2018-07-10 04:29 | P.OBDELI ---
Weeks Gestation: 21 Patient Started Active Labor: Yes Active Labor Start Date: 07/10/18 Active Labor Start Time: 00:00 Medical Induction of Labor: Yes Medical Induction Start Date: 07/09/18 Medical Induction Start Time: 22:00 Artificial Rupture of Membrane: No Anesthesia: None Episiotomy: none Vaginal Delivery: Spontaneous Nuchal Cord: None Delayed Cord Clamping (45 sec): No (twin demise) Placenta: Spontaneous delivery, Intact Laceration: None Estimated blood loss (mL): 50 Infant Male A Delivery Date: 07/10/18 Delivery Time: 03:59 Weight: 145 kg (VERTEX) score (1 min): 0 score (5 min): 0 Infant Male B Infant Delivery Date: 07/10/18 Delivery Time: 04:04 Weight: 165 kg (VERTEX) score (1 min): 0 score (5 min): 0 Additional Information: Called in for delivery. Pt went to bathroom, and c/o vaginal pressure. She reported leaking fluid. Pt returned to bed, and twin A noted on perineum. Twin A already delivered and umbilical cord clamped and divided. Under sterile field, vaginal exam done, twin b felt in vaginal canal. Twin B delivered with gentle traction. Cord clamped and divided. Both twins appear well-formed , and macerated. Placenta/membranes delivered with gentle traction on cord, and manually delivered. Minimal blood loss about 50cc. Patient tolerated procedure well.
[2018-07-10] MEDS ORDERED: Gentamicin Consult Pharmacy 1 EACH OTHER SCH (05:00)
[2018-07-10] MEDS ORDERED: Gentamicin/NS 80 mg Premix 100 ML IV.SIG ONE (05:10)
[2018-07-10] MEDS: Clindamycin 600 mg/NS Premix 600 MG/50 ML PIGGYBACK IV.SIG SCH ×3 (08:21→21:50)
--- NOTE | 2018-07-10 09:24 | P.PNOB ---
Subjective Post day: 0 Interval history: Patient admitted with twin IUFD. h/o IV substance abuse. Delivered vaginally this am, placenta intact. Doing well. Moderate lochia. Voided. Denies fevers or chills. Objective Vital Signs/I&O: Vital Signs 07/09/18 18:30 07/09/18 20:49 07/09/18 20:54 Temperature 98.9 F 98.4 F Pulse Rate 82 77 Respiratory Rate 18 18 Blood Pressure 125/89 150/75 H 07/10/18 01:36 07/10/18 04:18 07/10/18 04:45 Temperature 99.3 F 101.6 F H Pulse Rate 72 92 H Respiratory Rate 1 L 18 Blood Pressure 154/84 H 145/54 H 07/10/18 05:00 07/10/18 05:15 07/10/18 05:30 Temperature Pulse Rate Respiratory Rate 18 18 18 Blood Pressure 07/10/18 05:45 07/10/18 05:57 07/10/18 06:15 Temperature 100.2 F H Pulse Rate Respiratory Rate 18 18 Blood Pressure 07/10/18 07:54 Temperature 98.0 F Pulse Rate 86 Respiratory Rate 16 Blood Pressure 138/67 Intake & Output 07/09/18 07/10/18 07/10/18 18:59 06:59 18:59 Intake Total 1000 / 1000 Balance 1000 / 1000 Weight 73 kg Intake: IV 1000 / 1000 LR 1000 mL Inj 1,000 ML @ 125 1000 / 1000 mls/hr IV.CONT .Q8H [facility] Rx#: [id number] Other: Weight On Admission 73 kg Result Diagrams: 07/09/18 20:09 07/09/18 20:09 Objective Remarks: GENERAL: Well-nourished, well-developed patient. CARDIOVASCULAR: Regular rate and rhythm without murmurs, gallops, or rubs. RESPIRATORY: Breath sounds equal bilaterally. No accessory muscle use. ABDOMEN/GI: Abdomen soft, non-tender. Fundus: Firm, non-tender at umbilicus. GENITOURINARY: Light to moderate bleeding. EXTREMITIES: No cyanosis or edema, non-tender, without signs of DVT. Medications and IVs: Active Medications Acetaminophen (Tylenol) 650 mg PO Q4H PRN PRN Reason: PAIN SCALE 1 TO 2 Al Hydroxide/Mg Hydroxide (Milk Of Magnesia Liq) 30 ml PO Q12H PRN PRN Reason: Mild Constipation Benzocaine (Americaine 20% Top [place]) 1 spray TOPICAL Q4H PRN PRN Reason: For Perineum Discomfort Bisacodyl (Dulcolax Supp) 10 mg RECTAL DAILY PRN PRN Reason: SEVERE CONSITIPATION Citric Acid/Sodium Citrate (Sodium Citrate/Citric Acid Liq) 30 ml PO PHYSICS DEPARTMENT CHAIR [facility] Stop: 07/13/18 19:29 Diphtheria/Pertussis/Tetanus Vacc (Boostrix Vaccine Inj) 0.5 ml IM .ONCE ONE Stop: 07/10/18 16:01 Fentanyl Citrate (Fentanyl Inj) 50 mcg IV.PUSH Q1H PRN PRN Reason: Pain Scale 3 - 5 Last Admin: 07/10/18 02:50 Dose: 50 mcg Fentanyl Citrate (Fentanyl Inj) 100 mcg IV.PUSH Q1H PRN PRN Reason: PAIN SCALE 6 TO 10 Lactated Ringer's (Lr 1000 Ml Inj) 1,000 mls @ 125 mls/hr IV.CONT .Q8H [facility] Last Admin: 07/10/18 05:52 Dose: 125 mls/hr Lactated Ringer's (Lr 1000 Ml Inj) 1,000 mls @ 3,000 mls/hr IV.SIG UNSCH PRN PRN Reason: compromise or epidural Oxytocin (Pitocin 30 Units/Ns 500 Ml Premix) 30 units in 500 mls @ 100 mls/hr IV.CONT UNSCH PRN PRN Reason: Heavy bleeding Clindamycin/Sodium Chloride (Cleocin 600 Mg/Ns Premix) 600 mg in 50 mls @ 100 mls/hr IV.SIG Q8H [facility] Last Admin: 07/10/18 08:21 Dose: 100 mls/hr Pharmacy Profile Note (Gentamicin Consult Pharmacy) 0 mls @ 0 mls/hr OTHER UNSCH [facility] Ibuprofen (Motrin) 800 mg PO Q8H PRN PRN Reason: For Cramping Lactulose (Lactulose Liq) 30 ml PO DAILY PRN PRN Reason: SEVERE CONSITIPATION Lidocaine HCl (Xylocaine 1% Inj) 0.1 ml I-DERMAL PRN PRN PRN Reason: For IV start Stop: 07/12/18 19:25 Lidocaine HCl (Xylocaine 1% Inj) 10 ml INFILTRATN PRN PRN PRN Reason: For episiotomy repair Stop: 07/11/18 19:25 Lorazepam (Ativan) 0.5 mg PO Q6H PRN PRN Reason: ANXIETY Last Admin: 07/09/18 20:42 Dose: 0.5 mg Measles/Mumps/Rubella Vaccine Live (M-M-R Ii Vaccine Inj) 0.5 ml SQ .ONCE ONE Stop: 07/10/18 16:01 Metoclopramide HCl (Reglan Inj) 10 mg IV.PUSH UNSCH X1 PRN; Protocol PRN Reason: NAUSEA OR VOMITING Mineral Oil (Muri-Lube Oil) 10 ml TOPICAL PRN PRN PRN Reason: PRN perineal massage Misoprostol (Cytotec) 400 mcg PO Q6H JENNIE Last Admin: 07/10/18 01:37 Dose: 400 mcg Naloxone HCl (Narcan Inj) 0.1 mg IV.PUSH Q2M PRN PRN Reason: for opiate reversal Naloxone HCl (Narcan Inj) 0.1 mg IV.PUSH Q2M PRN PRN Reason: for opiate reversal Nicotine (Habitrol 21 Mg Patch.24 Hr) 1 patch T-DERMAL DAILY [facility] Last Admin: 07/09/18 20:42 Dose: 1 patch Ondansetron HCl (Zofran Inj) 4 mg IV.PUSH Q6H PRN PRN Reason: NAUSEA OR VOMITING Last Admin: 07/10/18 02:51 Dose: 4 mg Ondansetron HCl (Zofran Odt) 4 mg PO Q6H PRN PRN Reason: NAUSEA OR VOMITING Oxycodone/Acetaminophen (Percocet 5/325 Mg) 1 tab PO Q4H PRN PRN Reason: PAIN SCALE 3 TO 5 Last Admin: 07/10/18 08:42 Dose: 1 tab Oxycodone/Acetaminophen (Percocet 5/325 Mg) 2 tab PO Q4H PRN PRN Reason: PAIN SCALE 6 TO 10 Patch Removal (Remove Old Patch) 1 each T-DERMAL DAILY [facility] Senna/Docusate Sodium (Rain-Colace) 1 tab PO BID [facility] Sennosides (Senokot) 17.2 mg PO Q12H PRN PRN Reason: Moderate Constipation Sodium Chloride (Ns Flush) 2 ml IV.FLUSH BID [facility] Sodium Chloride (Ns Flush) 2 ml IV.FLUSH PRN PRN PRN Reason: FLUSH AFTER USING IV ACCESS Witch Fariba/Glycerin (Tucks Pads) 1 applicatio RECTAL QID PRN PRN Reason: HEMORRHOIDS Zolpidem Tartrate (Ambien) 5 mg PO HS PRN PRN Reason: SLEEP Assessment and Plan - Diagnosis (1) demise before 22 weeks with retention of fetus Code(s): O36.4XX0 - Maternal care for intrauterine , not applicable or unspecified Status: Acute Plan: s/p . Doing well. Uterus firm, non-tender. Now afebrile. No evidence endometritis. On Clindamycin/Gentamycin. (2) Substance abuse affecting in second trimester, antepartum Code(s): O99.322 - Drug use complicating , second trimester Status: Acute Plan: Prescribed Ativan 0.5 mg PO q 6 hourly (3) Hypokalemia Code(s): E87.6 - Hypokalemia Status: Acute Plan: will correct per PO hypokalemia replacement protocol. (4) Hand or foot spasms Code(s): R25.2 - Cramp and spasm Status: Acute Plan: normal calcium . Will obtain medicine consult.
[2018-07-10] MEDS: Senna/Docusate Sodium 8.6/50 MG Tablet PO SCH ×2 (10:23→22:22)
--- NOTE | 2018-07-10 13:11 | P.CON ---
History of Present Illness Primary Care Provider: NOT REQUIRED Chief Complaint: Twin demise History of Present Illness: The patient is a 23 yo F with PMH of IVDU. Patient is s/p twin demise. The hospitalist is consulted for evaluation of medical problems. The patient is complaining of fingers and toes pain and swelling. There is no erythema. There is no fever or chills. No n/v/d/c. She was not eating much and K is low replaced. Patient denies any chest pain or sob. No N/v/d/c. Boyfriend and mother also at bedside. Review of Systems All other systems reviewed negative except as stated in HPI PMFSH - History History Provided By: Patient - Medical History Medical History: Medical History (Last Reviewed 07/10/18 @ 13:16 by Joceline Silva MD) Medical history unknown Surgical history unknown - Surgical History Surgical History: Surgical History (Last Reviewed 07/10/18 @ 13:16 by Joceline Silva MD) No significant past surgical history - Family History Family History: Family History (Last Reviewed 07/10/18 @ 13:16 by Joceline Silva MD) Other No significant family history - Tobacco History Second Hand Smoke Exposure: Yes Tobacco Use In Past 30 Days: Yes Smoking Status: Heavy tobacco smoker (1/2 PPD) Tobacco Type: Cigarettes - Alcohol History How Often Do You Have a Drink Containing Alcohol: Never - Substance Use History Substance History: Active Abuse (pt denies recent use, but was admitted in ICU with GHB overdose, and admitted methamphetamine use.) - Substance Use Type Methamphetamine Status: Active Route Used: Intravenously - Travel History History of Recent Travel: No Recent Travel in the [place] Within the Last 8 Weeks: No Recent Travel Out of the Country Within the Last 8 Weeks: No Medications and Allergies Active Medications: Active Medications Acetaminophen (Tylenol) 650 mg PO Q4H PRN PRN Reason: PAIN SCALE 1 TO 2 Al Hydroxide/Mg Hydroxide (Milk Of Magnesia Liq) 30 ml PO Q12H PRN PRN Reason: Mild Constipation Benzocaine (Americaine 20% Top [place]) 1 spray TOPICAL Q4H PRN PRN Reason: For Perineum Discomfort Bisacodyl (Dulcolax Supp) 10 mg RECTAL DAILY PRN PRN Reason: SEVERE CONSITIPATION Citric Acid/Sodium Citrate (Sodium Citrate/Citric Acid Liq) 30 ml PO UNDER[employer] [facility] Stop: 07/13/18 19:29 Diphtheria/Pertussis/Tetanus Vacc (Boostrix Vaccine Inj) 0.5 ml IM .ONCE ONE Stop: 07/10/18 16:01 Fentanyl Citrate (Fentanyl Inj) 50 mcg IV.PUSH Q1H PRN PRN Reason: Pain Scale 3 - 5 Last Admin: 07/10/18 02:50 Dose: 50 mcg Fentanyl Citrate (Fentanyl Inj) 100 mcg IV.PUSH Q1H PRN PRN Reason: PAIN SCALE 6 TO 10 Lactated Ringer's (Lr 1000 Ml Inj) 1,000 mls @ 125 mls/hr IV.CONT .Q8H [facility] Last Admin: 07/10/18 05:52 Dose: 125 mls/hr Lactated Ringer's (Lr 1000 Ml Inj) 1,000 mls @ 3,000 mls/hr IV.SIG UNSCH PRN PRN Reason: compromise or epidural Oxytocin (Pitocin 30 Units/Ns 500 Ml Premix) 30 units in 500 mls @ 100 mls/hr IV.CONT UNSCH PRN PRN Reason: Heavy bleeding Clindamycin/Sodium Chloride (Cleocin 600 Mg/Ns Premix) 600 mg in 50 mls @ 100 mls/hr IV.SIG Q8H [facility] Last Infusion: 07/10/18 09:59 Dose: Infused Pharmacy Profile Note (Gentamicin Consult Pharmacy) 0 mls @ 0 mls/hr OTHER UNSCH [facility] Ibuprofen (Motrin) 800 mg PO Q8H PRN PRN Reason: For Cramping Last Admin: 07/10/18 10:24 Dose: 800 mg Lactulose (Lactulose Liq) 30 ml PO DAILY PRN PRN Reason: SEVERE CONSITIPATION Lidocaine HCl (Xylocaine 1% Inj) 0.1 ml I-DERMAL PRN PRN PRN Reason: For IV start Stop: 07/12/18 19:25 Lidocaine HCl (Xylocaine 1% Inj) 10 ml INFILTRATN PRN PRN PRN Reason: For episiotomy repair Stop: 07/11/18 19:25 Lorazepam (Ativan) 0.5 mg PO Q6H PRN PRN Reason: ANXIETY Last Admin: 07/09/18 20:42 Dose: 0.5 mg Measles/Mumps/Rubella Vaccine Live (M-M-R Ii Vaccine Inj) 0.5 ml SQ .ONCE ONE Stop: 07/10/18 16:01 Metoclopramide HCl (Reglan Inj) 10 mg IV.PUSH UNSCH X1 PRN; Protocol PRN Reason: NAUSEA OR VOMITING Mineral Oil (Muri-Lube Oil) 10 ml TOPICAL PRN PRN PRN Reason: PRN perineal massage Misoprostol (Cytotec) 400 mcg PO Q6H [facility] Last Admin: 07/10/18 09:57 Dose: Not Given Naloxone HCl (Narcan Inj) 0.1 mg IV.PUSH Q2M PRN PRN Reason: for opiate reversal Naloxone HCl (Narcan Inj) 0.1 mg IV.PUSH Q2M PRN PRN Reason: for opiate reversal Nicotine (Habitrol 21 Mg Patch.24 Hr) 1 patch T-DERMAL DAILY [facility] Last Admin: 07/10/18 10:02 Dose: Not Given Ondansetron HCl (Zofran Inj) 4 mg IV.PUSH Q6H PRN PRN Reason: NAUSEA OR VOMITING Last Admin: 07/10/18 02:51 Dose: 4 mg Ondansetron HCl (Zofran Odt) 4 mg PO Q6H PRN PRN Reason: NAUSEA OR VOMITING Oxycodone/Acetaminophen (Percocet 5/325 Mg) 1 tab PO Q4H PRN PRN Reason: PAIN SCALE 3 TO 5 Last Admin: 07/10/18 08:42 Dose: 1 tab Oxycodone/Acetaminophen (Percocet 5/325 Mg) 2 tab PO Q4H PRN PRN Reason: PAIN SCALE 6 TO 10 Patch Removal (Remove Old Patch) 1 each T-DERMAL DAILY [facility] Last Admin: 07/10/18 10:04 Dose: Not Given Senna/Docusate Sodium (Rain-Colace) 1 tab PO BID [facility] Last Admin: 07/10/18 10:23 Dose: 1 tab Sennosides (Senokot) 17.2 mg PO Q12H PRN PRN Reason: Moderate Constipation Sodium Chloride (Ns Flush) 2 ml IV.FLUSH BID [facility] Last Admin: 07/10/18 10:03 Dose: Not Given Sodium Chloride (Ns Flush) 2 ml IV.FLUSH PRN PRN PRN Reason: FLUSH AFTER USING IV ACCESS Witch Fariba/Glycerin (Tucks Pads) 1 applicatio RECTAL QID PRN PRN Reason: HEMORRHOIDS Zolpidem Tartrate (Ambien) 5 mg PO HS PRN PRN Reason: SLEEP Allergies Allergy/AdvReac Type Severity Reaction Status Date / Time bupropion [From Wellbutrin] Allergy Unknown Anaphylaxis Verified 07/07/18 12:19 Home Medications Medication Instructions Recorded Confirmed Type No Known Home Medications 07/09/18 07/09/18 History Physical Exam Vital signs: Vital Signs 07/09/18 18:30 07/09/18 20:49 07/09/18 20:54 Temperature 98.9 F 98.4 F Pulse Rate 82 77 Respiratory Rate 18 18 Blood Pressure 125/89 150/75 H 07/10/18 01:36 07/10/18 04:18 07/10/18 04:45 Temperature 99.3 F 101.6 F H Pulse Rate 72 92 H Respiratory Rate 1 L 18 Blood Pressure 154/84 H 145/54 H 07/10/18 05:00 07/10/18 05:15 07/10/18 05:30 Temperature Pulse Rate Respiratory Rate 18 18 18 Blood Pressure 07/10/18 05:45 07/10/18 05:57 07/10/18 06:15 Temperature 100.2 F H Pulse Rate Respiratory Rate 18 18 Blood Pressure 07/10/18 07:54 07/10/18 11:56 07/10/18 11:57 Temperature 98.0 F 98.7 F Pulse Rate 86 69 Respiratory Rate 16 7 L Blood Pressure 138/67 137/98 H 07/10/18 12:07 Temperature Pulse Rate Respiratory Rate 16 Blood Pressure Intake & Output 07/09/18 07/10/18 07/10/18 18:59 06:59 18:59 Intake Total 1000 / 1000 50 / 50 Balance 1000 / 1000 50 / 50 Weight 73 kg Intake: IV 1000 / 1000 50 / 50 LR 1000 mL Inj 1,000 ML @ 125 1000 / 1000 mls/hr IV.CONT .Q8H [facility] Rx#: [id number] Cleocin 600 mg/NS Premix 600 mg 50 / 50 In 50 ml @ 100 mls/hr IV.SIG Q8H [facility] Rx#:[id number] Other: Weight On Admission 73 kg Narrative: GENERAL: Young female, in bed appears in nad. SKIN: Warm and dry. Painful and swelling of fingers and toes, no erythema. HEAD: Atraumatic. Normocephalic. EYES: Pupils equal and round. No scleral icterus. No injection or drainage. ENT: No nasal bleeding or discharge. Mucous membranes pink and moist. NECK: Trachea midline. No JVD. CARDIOVASCULAR: Regular rate and rhythm. RESPIRATORY: No accessory muscle use. Clear to auscultation. Breath sounds equal bilaterally. GASTROINTESTINAL: Abdomen soft, non-tender, nondistended. Hepatic and splenic margins not palpable. MUSCULOSKELETAL: Extremities without clubbing, cyanosis, or edema. No obvious deformities. NEUROLOGICAL: Awake and alert. No obvious cranial nerve deficits. Motor grossly within normal limits. Five out of 5 muscle strength in the arms and legs. Normal speech. PSYCHIATRIC: Appropriate mood and affect; insight and judgment normal. Assessment and Plan - Plan 23 yo female IVDU s/p twin demise demise before 22 weeks with retention of fetus s/p . Continue IV abx Clindamycin/Gentamycin. Substance abuse affecting in second trimester, antepartum Ativan 0.5 mg PO q 6 hourly Hypokalemia KCl supplement Continue to monitor and replace. Check mag as well Hand or foot spasms normal calcium Low K might contribute . Monitor electrolytes and replace Patient with pain and swelling of her fingers and toes. poss Osler nodules, concern of subacute endocarditis Obtain blood cultures Consider consult ID. Consider 2D ECHO Patient is on clynda and genta IV abx Thank you for this consultation
[2018-07-10 15:14] LABS: Anion Gap 10 meq/L (5-15); Blood Urea Nitrogen 6 mg/dL (7-18); Calcium 8.1 mg/dL (8.5-10.1); Carbon Dioxide 26.4 meq/L (21.0-32.0); Chloride 109 meq/L (98-107); Glomerular Filtration Rate Greater Than 89 mL/min (>89); Glucose,Random 98 mg/dL (74-106); Potassium 3.3 meq/L (3.5-5.1); Sodium 145 meq/L (136-145)
[2018-07-10] MEDS ORDERED: Vancomycin Consult Pharmacy 1 EACH OTHER SCH (15:45)
[2018-07-10 15:52] LABS: Magnesium 1.7 mg/dL (1.5-2.5)
[2018-07-10] MEDS ORDERED: Measles/Mumps/Rubella Vaccine Inj 0.5 ML Vial SQ ONE (16:00)
[2018-07-10] MEDS ORDERED: Gentamicin Inj 120 MG in Sodium Chlor 0.9% Inj 100 ML IV.SIG SCH (16:00)
[2018-07-10] MEDS ORDERED: Diphtheria/Tetanus/Pertussis Vaccine Inj 0.5 ML Syringe IM ONE (16:00)
--- NOTE | 2018-07-10 17:47 | MB ---
cc: Elton Middleton MD DATE: 07/10/2018 REQUESTING PHYSICIAN: Dr. Silva. REASON FOR VISIT: Possible subacute bacterial endocarditis. HISTORY OF PRESENT ILLNESS: This is a 23-year-old white female who was admitted to the hospital for obstetrical service. The patient was 28 weeks and she had delivery of nonviable fetuses. The patient is a known IV drug user. She had temperature elevation to 101.6 degrees earlier today. Blood cultures have been obtained. Urine culture has also been obtained. She has been started on antibiotics. It was concerning that the fetuses may have been for some time before being removed from the patient and there was some necrosis noted. The patient is currently very somnolent. I was told by the nurse that she was more awake earlier. She does not been given narcotic pain medications today. She was recently admitted to the hospital on 06/03/2018 for overdose and acute hypoxic respiratory failure. She was noted to have taken GBH and methamphetamines. She did not have attention prior to that visit. She had mild elevation of the white count of 11.8 on 06/03/2018. The patient denies back pain, chest pain, shortness of breath, nausea, vomiting, abdominal pain, joint pain, chills, or night sweats. She last injected IV drugs into the left antecubital vein approximately 1 week ago per report of caregivers. PAST MEDICAL HISTORY: Unremarkable. PAST SURGICAL HISTORY: Unremarkable. ALLERGIES: BUPROPION. MEDICATIONS: 1. Clindamycin. 2. Ibuprofen. 3. Ativan p.r.n. 4. Rain-Colace. 5. Gentamicin x1 dose. SOCIAL HISTORY: Positive tobacco use. No alcohol. Positive IV drug use. FAMILY HISTORY: Noncontributory. REVIEW OF SYSTEMS: All systems have been reviewed and are negative. The pertinent features are mentioned in history of present illness. PHYSICAL EXAMINATION: GENERAL: This is a well-developed female who appears somewhat drowsy. She drifts off to sleep during my evaluation and has to be shaken to awaken VITAL SIGNS: Temperature 98.4, BP 130/64, respirations 18, heart rate 65. HEENT: Head is atraumatic. Extraocular movements grossly intact. Pupils reactive to light. No icterus. Oropharynx; moist mucosa without lesions. NECK: Supple without adenopathy. LUNGS: Decreased breath sounds bilaterally. HEART: Regular S1, S2. No audible murmur. ABDOMEN: Bowel sounds present. Soft, nontender. No masses palpable. No hepatosplenomegaly. RECTAL: Not performed. EXTREMITIES: Erythema around all the DIP joints of the hands. The patient also has erythematous lesions at the inner aspect of the fingers. She also has erythema over the toes overlying the intraphalangeal joints. No calf tenderness. No palpable cords. SKIN: Hyperemic appearance of the lower extremities. Increased warmth. The skin is moist. NEUROLOGIC: No gross focal findings. PSYCHIATRIC: Patient is calm. LABORATORY DATA: WBC 10.5, platelet count is 305, hemoglobin 11.1, 60% neutrophils, 20% lymphocytes. Creatinine 0.57, BUN 6, Urine culture has preliminary growth. ASSESSMENT AND PLAN: Fever in a patient with history of intravenous drug abuse. Rule out endocarditis. The patient with erythema of the fingers and toes. It is not clear whether these reflect embolic changes of endocarditis, although they do not look typical. However, we may need to consider potential infection as cause of her fever in light of her intravenous drug use and now status post twin demise. RECOMMENDATIONS: 1. Continue clindamycin for potential infection related to uterine process in patient who is post delivery of twins. 2. Add vancomycin. 3. Monitor urine culture. 4. Obtain 2-D echocardiogram for further evaluation of the heart valves. 5. Monitor temperature. 6. Monitor clinical status. Because of the patient's clinical status, I think she needs to be transferred to the medical service for further evaluation and treatment. Thank you for this consultation. I will monitor the patient's progress along with you and we will make further recommendations and followup if necessary. MD ANA CRISTINA Louis/ramirez/daksha , 03:46 PM , 04:06 PM LIYAH
[2018-07-10] MEDS: Vancomycin Inj 1,250 MG in Sodium Chlor 0.9% Inj 250 ML IV.SIG SCH (19:23)
[2018-07-11] MEDS: Vancomycin Inj 1,250 MG in Sodium Chlor 0.9% Inj 250 ML IV.SIG SCH ×3 (02:55→18:30)
[2018-07-11] MEDS: Clindamycin 600 mg/NS Premix 600 MG/50 ML PIGGYBACK IV.SIG SCH ×3 (04:08→22:33)
[2018-07-11 06:09] LABS: Baso # (Auto) 0.1 th/mm3 (0.0-0.2); Eos # (Auto) 0.3 th/mm3 (0.0-0.4); Eos % (Auto) 3.5 % (0.0-4.0); Hematocrit 32.8 % (35.0-46.0); Lymph # (Auto) 2.2 th/mm3 (1.0-4.8); Lymph % (Auto) 24.3 % (9.0-44.0); Mean Corpuscular HGB Conc 33.5 % (32.0-36.0); Mean Corpuscular Hemoglobin 31.2 pg (27.0-34.0); Mean Corpuscular Volume 93.1 fL (80.0-100.0); Mean Platelet Volume 8.3 fL (7.0-11.0); Mono # (Auto) 0.7 th/mm3 (0.0-0.9); Mono % (Auto) 7.6 % (0.0-8.0); Neut # (Auto) 5.8 th/mm3 (1.8-7.7); Neut % (Auto) 63.6 % (16.0-70.0); Platelet Count 255 th/mm3 (150-450); Red Blood Count 3.53 mil/mm3 (4.00-5.30); Red Cell Distribution Width 14.2 % (11.6-17.2); White Blood Count 9.1 th/mm3 (4.0-11.0)
[2018-07-11 06:41] LABS: Alanine Aminotransferase 14 U/L (10-53); Albumin 2.6 g/dL (3.4-5.0); Alkaline Phosphatase 68 U/L (45-117); Anion Gap 9 meq/L (5-15); Aspartate Aminotransferase 13 U/L (15-37); Blood Urea Nitrogen 7 mg/dL (7-18); Calcium 7.8 mg/dL (8.5-10.1); Carbon Dioxide 24.3 meq/L (21.0-32.0); Chloride 112 meq/L (98-107); Glomerular Filtration Rate Greater Than 89 mL/min (>89); Glucose,Random 84 mg/dL (74-106); Potassium 3.5 meq/L (3.5-5.1); Sodium 145 meq/L (136-145); Total Protein 5.9 g/dL (6.4-8.2)
[2018-07-11] MEDS: Senna/Docusate Sodium 8.6/50 MG Tablet PO SCH ×2 (09:25→20:11)
--- NOTE | 2018-07-11 09:31 | P.PNOB ---
Subjective Interval history: Patient seen and examined at bedside this morning. She is a 23-year-old that delivered unviable twin fetuses at 21 weeks and 5 days. PPD#1. AFVSS. She has a history of IV drug use. Was complaining of upper extremity numbness and tingling and erythema in her finger tips along with lower extremity numbness and tingling in her toes. ID and the hospitalist were consulted for further evaluation. A murmur was appreciated on auscultation yesterday with concerns for endocarditis. Patient has not gone for echocardiogram yet. She is agitated today. States that she would like to go home. Denies that she is withdrawing from drugs but is asking for a nicotine patch (she smokes 8 cigs daily). Patient says the last date of drug use was 1 week ago when she "shot methamphetamine" in the right arm. Today she denies any chest pain, shortness of breath, problems with eating or drinking. She confirms some uterine cramping. States that her vaginal bleeding is minimal. She is up and walking around without any complications. She denies any past medical history. Objective Vital Signs/I&O: Vital Signs 07/10/18 11:56 07/10/18 11:57 07/10/18 12:07 Temperature 98.7 F Pulse Rate 69 Respiratory Rate 7 L 16 Blood Pressure 137/98 H Pulse Oximetry 07/10/18 15:30 07/10/18 16:21 07/10/18 18:32 Temperature 98.4 F 98.1 F Pulse Rate 65 57 L Respiratory Rate 18 16 21 Blood Pressure 138/64 141/87 H Pulse Oximetry 99 07/10/18 20:00 07/11/18 00:00 07/11/18 04:00 Temperature 97.6 F 97.9 F 97.7 F Pulse Rate 69 60 55 L Respiratory Rate 16 18 16 Blood Pressure 150/67 H 129/59 L 127/83 Pulse Oximetry 98 97 97 Intake & Output 07/10/18 07/11/18 07/11/18 18:59 06:59 18:59 Intake Total 50 / 50 625.0 / 625.0 Balance 50 / 50 625.0 / 625.0 Weight 72.6 kg 72.9 kg Intake: IV 50 / 50 625.0 / 625.0 Cleocin 600 mg/NS Premix 600 mg 50 / 50 100 / 100 In 50 ml @ 100 mls/hr IV.SIG Q8H [facility] Rx#:[id number] Vancomycin Inj 1,250 MG In NS 525.0 / 525.0 Inj 250 ML @ 262.5 mls/hr IV. SIG Q8H [facility] Rx#:[id number] Result Diagrams: 07/11/18 05:32 07/11/18 05:32 Objective Remarks: GENERAL: Well-nourished, well-developed patient. CARDIOVASCULAR: Regular rate and rhythm without murmurs, gallops, or rubs. RESPIRATORY: Breath sounds equal bilaterally. No accessory muscle use. ABDOMEN/GI: Abdomen soft, non-tender. Fundus: Firm, non-tender at umbilicus. GENITOURINARY: Light to moderate bleeding. EXTREMITIES: No cyanosis or edema. Erythema of the digits of the hand b/l. Medications and IVs: Active Medications Acetaminophen (Tylenol) 650 mg PO Q4H PRN PRN Reason: PAIN SCALE 1 TO 2 Al Hydroxide/Mg Hydroxide (Milk Of Magnesia Liq) 30 ml PO Q12H PRN PRN Reason: Mild Constipation Benzocaine (Americaine 20% Top [place]) 1 spray TOPICAL Q4H PRN PRN Reason: For Perineum Discomfort Bisacodyl (Dulcolax Supp) 10 mg RECTAL DAILY PRN PRN Reason: SEVERE CONSITIPATION Citric Acid/Sodium Citrate (Sodium Citrate/Citric Acid Liq) 30 ml PO [employer] [facility] Stop: 07/13/18 19:29 Lactated Ringer's (Lr 1000 Ml Inj) 1,000 mls @ 125 mls/hr IV.CONT .Q8H [facility] Last Admin: 07/11/18 04:08 Dose: Not Given Lactated Ringer's (Lr 1000 Ml Inj) 1,000 mls @ 3,000 mls/hr IV.SIG UNSCH PRN PRN Reason: compromise or epidural Oxytocin (Pitocin 30 Units/Ns 500 Ml Premix) 30 units in 500 mls @ 100 mls/hr IV.CONT UNSCH PRN PRN Reason: Heavy bleeding Clindamycin/Sodium Chloride (Cleocin 600 Mg/Ns Premix) 600 mg in 50 mls @ 100 mls/hr IV.SIG Q8H [facility] Last Infusion: 07/11/18 04:38 Dose: Infused Pharmacy Profile Note (Gentamicin Consult Pharmacy) 0 mls @ 0 mls/hr OTHER [facility] Pharmacy Profile Note (Vancomycin Consult Pharmacy) 0 mls @ 0 mls/hr OTHER [facility] Vancomycin HCl 1,250 mg/ (Sodium Chloride) 262.5 mls @ 262.5 mls/hr IV.SIG Q8H [facility] Last Infusion: 07/11/18 04:08 Dose: Infused Ibuprofen (Motrin) 800 mg PO Q8H PRN PRN Reason: For Cramping Last Admin: 07/10/18 17:53 Dose: 800 mg Lactulose (Lactulose Liq) 30 ml PO DAILY PRN PRN Reason: SEVERE CONSITIPATION Lidocaine HCl (Xylocaine 1% Inj) 0.1 ml I-DERMAL PRN PRN PRN Reason: For IV start Stop: 07/12/18 19:25 Lidocaine HCl (Xylocaine 1% Inj) 10 ml INFILTRATN PRN PRN PRN Reason: For episiotomy repair Stop: 07/11/18 19:25 Lorazepam (Ativan) 0.5 mg PO Q6H PRN PRN Reason: ANXIETY Last Admin: 07/09/18 20:42 Dose: 0.5 mg Metoclopramide HCl (Reglan Inj) 10 mg IV.PUSH UNSCH X1 PRN; Protocol PRN Reason: NAUSEA OR VOMITING Mineral Oil (Muri-Lube Oil) 10 ml TOPICAL PRN PRN PRN Reason: PRN perineal massage Miscellaneous Information ([facility] Ordered Lab Info) 0 each OTHER ONCE ONE Stop: 07/11/18 17:46 Naloxone HCl (Narcan Inj) 0.1 mg IV.PUSH Q2M PRN PRN Reason: for opiate reversal Naloxone HCl (Narcan Inj) 0.1 mg IV.PUSH Q2M PRN PRN Reason: for opiate reversal Nicotine (Habitrol 21 Mg Patch.24 Hr) 1 patch T-DERMAL DAILY [facility] Last Admin: 07/10/18 10:02 Dose: Not Given Ondansetron HCl (Zofran Inj) 4 mg IV.PUSH Q6H PRN PRN Reason: NAUSEA OR VOMITING Last Admin: 07/10/18 02:51 Dose: 4 mg Ondansetron HCl (Zofran Odt) 4 mg PO Q6H PRN PRN Reason: NAUSEA OR VOMITING Patch Removal (Remove Old Patch) 1 each T-DERMAL DAILY [facility] Last Admin: 07/10/18 10:04 Dose: Not Given Senna/Docusate Sodium (Rain-Colace) 1 tab PO BID [facility] Last Admin: 07/10/18 22:22 Dose: 1 tab Sennosides (Senokot) 17.2 mg PO Q12H PRN PRN Reason: Moderate Constipation Sodium Chloride (Ns Flush) 2 ml IV.FLUSH BID [facility] Last Admin: 07/10/18 22:22 Dose: 2 ml Sodium Chloride (Ns Flush) 2 ml IV.FLUSH PRN PRN PRN Reason: FLUSH AFTER USING IV ACCESS Witch Fariba/Glycerin (Tucks Pads) 1 applicatio RECTAL QID PRN PRN Reason: HEMORRHOIDS Zolpidem Tartrate (Ambien) 5 mg PO HS PRN PRN Reason: SLEEP Assessment and Plan - Plan 23-year-old female delivered unviable twin fetuses at 21 and 5 weeks. She is day #1. Has Been afebrile for 24 hours. Grade 2 systolic murmur on auscultation. -Concerns for endocarditis: On Clindamycin and Vancomycin per ID recommendations. -Hypokalemia of 3.1, 2 days ago status post 40 mEq of potassium replacement. Potassium today at 3.5. -Monitor and replete electrolytes as needed. Continue to follow. -Echocardiogram ordered. Follow Up. -Patient has been afebrile continue to monitor. -Monitor for signs of withdrawal. -Discussed with OB Hospitalist (Dr. Vargas)
--- NOTE | 2018-07-11 11:11 | P.PNIM ---
Subjective Interval history: Today patient only complains of persisting pain in her finger tips and toes. Physical Exam Vital signs: Vital Signs 07/10/18 11:56 07/10/18 11:57 07/10/18 12:07 Temperature 98.7 F Pulse Rate 69 Respiratory Rate 7 L 16 Blood Pressure 137/98 H Pulse Oximetry 07/10/18 15:30 07/10/18 16:21 07/10/18 18:32 Temperature 98.4 F 98.1 F Pulse Rate 65 57 L Respiratory Rate 18 16 21 Blood Pressure 138/64 141/87 H Pulse Oximetry 99 07/10/18 20:00 07/11/18 00:00 07/11/18 04:00 Temperature 97.6 F 97.9 F 97.7 F Pulse Rate 69 60 55 L Respiratory Rate 16 18 16 Blood Pressure 150/67 H 129/59 L 127/83 Pulse Oximetry 98 97 97 07/11/18 08:00 Temperature 97.9 F Pulse Rate 79 Respiratory Rate 20 Blood Pressure 140/63 Pulse Oximetry 97 Intake & Output 07/10/18 07/11/18 07/11/18 18:59 06:59 18:59 Intake Total 50 / 50 625.0 / 625.0 Balance 50 / 50 625.0 / 625.0 Weight 72.6 kg 72.9 kg Intake: IV 50 / 50 625.0 / 625.0 Cleocin 600 mg/NS Premix 600 mg 50 / 50 100 / 100 In 50 ml @ 100 mls/hr IV.SIG Q8H [facility] Rx#:[id number] Vancomycin Inj 1,250 MG In NS 525.0 / 525.0 Inj 250 ML @ 262.5 mls/hr IV. SIG Q8H [facility] Rx#:[id number] Narrative: GENERAL: AAOx3, no acute distress SKIN: Warm and dry. No rashes HEAD: Atruamtic, normocephalic. EYES: No scleral icterus. No injection or drainage. ENT: Moist mucous membranes, patent nares, no erythema of oropharynx. NECK: Supple, trachea midline. No JVD or lymphadenopathy. Normal thyroid. CARDIOVASCULAR: Regular rate and rhythm. 1/6 systolic ejection murmur RESPIRATORY: Breath sounds clear equal bilaterally. No crackles or wheezes. No accessory muscle use. GASTROINTESTINAL: Abdomen soft, non-tender, nondistended, normal active bowel sounds MUSCULOSKELETAL: No cyanosis, or edema. NEURO: CN II-XII grossly intact, no focal deficits, no slurring of speech Results - Labs CBC & Chem 7: 07/11/18 05:32 07/11/18 05:32 Laboratory Results - last 24 hr 07/10/18 07/10/18 07/11/18 14:37 14:37 05:32 WBC 9.1 RBC 3.53 L Hgb 11.0 L Hct 32.8 L MCV 93.1 MCH 31.2 MCHC 33.5 RDW 14.2 Plt Count 255 MPV 8.3 Neut % (Auto) 63.6 Lymph % (Auto) 24.3 Piatt % (Auto) 7.6 Eos % (Auto) 3.5 Baso % (Auto) 1.0 Neut # (Auto) 5.8 Lymph # (Auto) 2.2 Piatt # (Auto) 0.7 Eos # (Auto) 0.3 Baso # (Auto) 0.1 WBC Differential . Differential Comment Auto diff final Sodium 145 Potassium 3.3 L Chloride 109 H Carbon Dioxide 26.4 Anion Gap 10 BUN 6 L Creatinine 0.57 Estimated GFR Greater than 89 Random Glucose 98 Calcium 8.1 L D Magnesium 1.7 Total Bilirubin AST ALT Alkaline Phosphatase Total Protein Albumin Vitamin B12 223 07/11/18 05:32 WBC RBC Hgb Hct MCV MCH MCHC RDW Plt Count MPV Neut % (Auto) Lymph % (Auto) Piatt % (Auto) Eos % (Auto) Baso % (Auto) Neut # (Auto) Lymph # (Auto) Piatt # (Auto) Eos # (Auto) Baso # (Auto) WBC Differential Differential Comment Sodium 145 Potassium 3.5 Chloride 112 H Carbon Dioxide 24.3 Anion Gap 9 BUN 7 Creatinine 0.45 L Estimated GFR Greater than 89 Random Glucose 84 Calcium 7.8 L Magnesium Total Bilirubin 0.3 AST 13 L ALT 14 Alkaline Phosphatase 68 Total Protein 5.9 L D Albumin 2.6 L D Vitamin B12 Microbiology 07/10/18 07:40 Blood - Peripheral Aerobic Blood Culture - Preliminary No growth in 1 day 07/10/18 07:40 Blood - Peripheral Anaerobic Blood Culture - Preliminary No growth in 1 day 07/10/18 07:35 Blood - Peripheral Aerobic Blood Culture - Preliminary No growth in 1 day 07/10/18 07:35 Blood - Peripheral Anaerobic Blood Culture - Preliminary No growth in 1 day 07/09/18 18:45 Clean Catch Urine Urine Culture - Final 50-100,000 cfu/mL mixed gram positive glen (probable contaminants) Assessment and Plan - Plan 23 yo female IVDU s/p twin demise demise before 22 weeks s/p Continue IV Clindamycin/Gentamicin h/o polysubstance abuse, IVDU Ativan 0.5mg as needed for signs of withdrawal Finger and toe pain Normal calcium, electrolytes replaced Concerning for Osler nodules and subacute endocarditis given h/o IVDU Following blood cultures, so far negative x 1 day Infectious disease consult pending 2D ECHO ordered Continue Clindamycin/Gentamicin Discharge Planning Would recommend further work up for endocarditis to be completed prior to discharge.
--- NOTE | 2018-07-11 12:20 | P.PNID ---
Subjective Remarks: Patient notes that she feels okay. She denies fever chills nausea vomiting shortness of breath or chest pain. Denies abdominal pain. Afebrile. Blood culture has no growth in 1 day. Urine culture has mixed gram-positive glen. This is a 23-year-old white female who was admitted to the hospital for obstetrical service. The patient was 28 weeks with twins and she had delivery of nonviable fetuses. The patient is a known IV drug user. She had temperature elevation to 101.6 degrees earlier today. Blood cultures have been obtained. It was concerning that the fetuses may have been for some time before being removed from the patient and there was some necrosis noted. She was recently admitted to the hospital on 06/03/2018 for overdose and acute hypoxic respiratory failure. She was noted to have taken GBH and methamphetamines. She did not have attention prior to that visit. She last injected IV drugs into the left antecubital vein approximately 1 week ago per report of caregivers. Allergies/Adverse Reactions: Allergies bupropion [From Wellbutrin] Allergy (Unknown, Verified 07/07/18 12:19) Anaphylaxis Objective Vital Signs 07/10/18 15:30 07/10/18 16:21 07/10/18 18:32 Temperature 98.4 F 98.1 F Pulse Rate 65 57 L Respiratory Rate 18 16 21 Blood Pressure 138/64 141/87 H Pulse Oximetry 99 07/10/18 20:00 07/11/18 00:00 07/11/18 04:00 Temperature 97.6 F 97.9 F 97.7 F Pulse Rate 69 60 55 L Respiratory Rate 16 18 16 Blood Pressure 150/67 H 129/59 L 127/83 Pulse Oximetry 98 97 97 07/11/18 08:00 Temperature 97.9 F Pulse Rate 79 Respiratory Rate 20 Blood Pressure 140/63 Pulse Oximetry 97 Intake & Output 07/10/18 07/11/18 07/11/18 18:59 06:59 18:59 Intake Total 50 / 50 625.0 / 625.0 Balance 50 / 50 625.0 / 625.0 Weight 72.6 kg 72.9 kg Intake: IV 50 / 50 625.0 / 625.0 Cleocin 600 mg/NS Premix 600 mg 50 / 50 100 / 100 In 50 ml @ 100 mls/hr IV.SIG Q8H [facility] Rx#:[id number] Vancomycin Inj 1,250 MG In NS 525.0 / 525.0 Inj 250 ML @ 262.5 mls/hr IV. SIG Q8H [facility] Rx#:[id number] Other: Date of Last Bowel Movement 07/10/18 07/10/18 07:40 Blood - Peripheral Aerobic Blood Culture - Preliminary No growth in 1 day 07/10/18 07:40 Blood - Peripheral Anaerobic Blood Culture - Preliminary No growth in 1 day 07/10/18 07:35 Blood - Peripheral Aerobic Blood Culture - Preliminary No growth in 1 day 07/10/18 07:35 Blood - Peripheral Anaerobic Blood Culture - Preliminary No growth in 1 day 07/09/18 18:45 Clean Catch Urine Urine Culture - Final 50-100,000 cfu/mL mixed gram positive glen (probable contaminants) Lab - Hematology Results 07/09/18 07/11/18 20:09 05:32 WBC 10.5 9.1 RBC 3.54 L 3.53 L Hgb 11.1 L 11.0 L Hct 32.9 L 32.8 L MCV 93.0 93.1 MCH 31.5 31.2 MCHC 33.9 33.5 RDW 14.1 14.2 Plt Count 305 255 MPV 8.6 8.3 Neut % (Auto) 60.3 63.6 Lymph % (Auto) 28.2 24.3 [place] % (Auto) 7.5 7.6 Eos % (Auto) 3.1 3.5 Baso % (Auto) 0.9 1.0 Neut # (Auto) 6.3 5.8 Lymph # (Auto) 3.0 2.2 [place] # (Auto) 0.8 0.7 Eos # (Auto) 0.3 0.3 Baso # (Auto) 0.1 0.1 WBC Differential . . Differential Comment Auto diff final Auto diff final Lab - Chemistry Results 07/09/18 07/10/18 07/10/18 20:09 14:37 14:37 Sodium 141 145 Potassium 3.1 L 3.3 L Chloride 107 109 H Carbon Dioxide 22.2 26.4 Anion Gap 12 10 BUN 8 6 L Creatinine 0.60 0.57 Estimated GFR Greater than 89 Greater than 89 Random Glucose 108 H 98 Calcium 8.9 8.1 L D Magnesium 1.7 Total Bilirubin 0.2 AST 17 ALT 21 Alkaline Phosphatase 95 Total Protein 6.7 Albumin 3.4 Vitamin B12 223 07/11/18 05:32 Sodium 145 Potassium 3.5 Chloride 112 H Carbon Dioxide 24.3 Anion Gap 9 BUN 7 Creatinine 0.45 L Estimated GFR Greater than 89 Random Glucose 84 Calcium 7.8 L Magnesium Total Bilirubin 0.3 AST 13 L ALT 14 Alkaline Phosphatase 68 Total Protein 5.9 L D Albumin 2.6 L D Vitamin B12 Physical Exam: PHYSICAL EXAMINATION: GENERAL: No acute distress. Awake and alert. HEENT: Head is atraumatic. Extraocular movements grossly intact. Pupils reactive to light. No icterus. Oropharynx; moist mucosa without lesions. NECK: Supple without adenopathy. LUNGS: Decreased breath sounds bilaterally. HEART: Regular S1, S2. No audible murmur. ABDOMEN: Bowel sounds present. Soft, nontender. No masses palpable. No hepatosplenomegaly. EXTREMITIES: No erythema around all the DIP joints of the hands has faded. The erythematous lesions at the inner aspect of the fingers has faded. The erythema over the toes overlying the intraphalangeal joints has faded. Tenderness palpation of the DIP joints both hands Also DIP joints at the toes 3 4 and 5 on left foot and toe #5 right foot. No calf tenderness. No palpable cords. SKIN: No diffuse rash. Skin is warm and moist. NEUROLOGIC: No gross focal findings. PSYCHIATRIC: Patient is calm. Assessment and Plan - Plan ASSESSMENT AND PLAN: Fever in a patient with history of intravenous drug abuse. Rule out endocarditis. The patient had erythema of the fingers and toes. It is not clear whether these reflect embolic changes of endocarditis, It does not look typical. However, we may need to consider potential infection as cause of her fever in light of her intravenous drug use and now status post twin demise. Clinically the patient looks stable. RECOMMENDATIONS: 1. Continue clindamycin for potential infection related to uterine process in patient who is post delivery of twins. 2. Continue vancomycin. 3. Monitor 2D echocardiogram and blood cultures. 4. Monitor temperature. 5. Monitor clinical status. I will be off this weekend. Dr. Hernan zaidi.
--- NOTE | 2018-07-11 12:56 | ECHRPT ---
Indication: Cardiomyopathy CONCLUSIONS Slightly dilated left ventricle. Wall thickness is normal. Normal LV systolic function. The left atrial size is upper limits of normal. Trace mitral valve regurgitation. Trace aortic valve regurgitation. There is trace tricuspid valve regurgitation. BP: / HR: Rhythm: MEASUREMENTS (Male / Female) Normal Values Technical Quality:Good 2D ECHO LV Diastolic Diameter PLAX 5.9 cm 4.2 - 5.9 / 3.9 - 5.3 cm LV Systolic Diameter PLAX 4.1 cm IVS Diastolic Thickness 0.9 cm 0.6 - 1.0 / 0.6 - 0.9 cm LVPW Diastolic Thickness 1.0 cm 0.6 - 1.0 / 0.6 - 0.9 cm LV Relative Wall Thickness 0.3 RV Internal Dim ED PLAX 2.4 cm LVOT Diameter 2.1 cm Aortic Root Diameter 2.7 cm LA Systolic Diameter LX 4.0 cm 3.0 - 4.0 / 2.7 - 3.8 cm M-MODE AV Cusp Separation MM 2.1 cm DOPPLER AV Peak Velocity 204.0 cm/s AV Peak Gradient 16.6 mmHg LVOT Peak Velocity 142.0 cm/s LVOT Peak Gradient 8.1 mmHg AV Area Cont Eq pk 2.4 cm Mitral E Point Velocity 109.0 cm/s Mitral A Point Velocity 57.8 cm/s Mitral E to A Ratio 1.9 LV E' Lateral Velocity 18.6 cm/s Mitral E to LV E' Lateral Ratio 5.9 LV E' Septal Velocity 16.4 cm/s Mitral E to LV E' Septal Ratio 6.6 TR Peak Velocity 266.0 cm/s TR Peak Gradient 28.3 mmHg Right Atrial Pressure 10.0 mmHg Pulmonary Artery Systolic Pressu 38.3 mmHg Right Ventricular Systolic Press 38.3 mmHg PV Peak Velocity 166.0 cm/s PV Peak Gradient 11.0 mmHg FINDINGS LEFT VENTRICLE Slightly dilated left ventricle. Wall thickness is normal. The left ventricular systolic function is normal with an estimated ejection fraction in the range of 60-65%. RIGHT VENTRICLE Normal right ventricular size and systolic function. LEFT ATRIUM The left atrial size is upper limits of normal. RIGHT ATRIUM The right atrial size is normal. ATRIAL SEPTUM Normal atrial septal thickness without atrial level shunting by limited color doppler interrogation. AORTA The aortic root and proximal ascending aorta are normal in size on limited imaging. MITRAL VALVE Trace mitral valve regurgitation. AORTIC VALVE Trileaflet aortic valve. Trace aortic valve regurgitation. TRICUSPID VALVE There is trace tricuspid valve regurgitation. PULMONARY VALVE No pulmonary valve regurgitation or stenosis. VESSELS The inferior vena cava is normal in size. PERICARDIUM No pericardial effusion. Burke Schultz MD (Electronically Signed) Final Date:11 July 2018 12:55
[2018-07-11] MEDS ORDERED: Pharmacy Ordered Lab Info OTHER ONE ×2 (17:45→23:00)
[2018-07-12] MEDS: Vancomycin Inj 1,250 MG in Sodium Chlor 0.9% Inj 250 ML IV.SIG SCH ×3 (01:03→17:08)
[2018-07-12] MEDS: Clindamycin 600 mg/NS Premix 600 MG/50 ML PIGGYBACK IV.SIG SCH ×3 (04:51→21:07)
[2018-07-12] MEDS: Senna/Docusate Sodium 8.6/50 MG Tablet PO SCH ×2 (08:15→21:08)
[2018-07-12] MEDS ORDERED: Pharmacy Ordered Lab Info OTHER ONE (09:45)
--- NOTE | 2018-07-12 09:48 | P.PNIM ---
Subjective Interval history: 23-year-old female with twin demise and history of IV drug use. She still complains of pain in her fingertips and toes. She is otherwise comfortable and not feeling withdrawal or tempted to leave the hospital. Physical Exam Vital signs: Vital Signs 07/11/18 12:00 07/11/18 16:00 07/11/18 20:00 Temperature 98.5 F 98.4 F 97.7 F Pulse Rate 83 72 75 Respiratory Rate 20 20 18 Blood Pressure 159/79 H 128/63 166/86 H Pulse Oximetry 99 98 98 07/12/18 00:00 07/12/18 04:00 07/12/18 08:00 Temperature 98.2 F 98.1 F 97.3 F L Pulse Rate 80 75 88 Respiratory Rate 18 18 20 Blood Pressure 146/81 H 119/77 142/88 H Pulse Oximetry 96 98 99 Intake & Output 07/11/18 07/12/18 07/12/18 18:59 06:59 18:59 Intake Total 1532.5 / 1532.5 1605.0 / 1605.0 Balance 1532.5 / 1532.5 1605.0 / 1605.0 Weight 74.9 kg Intake: IV 812.5 / 812.5 1125.0 / 1125.0 LR 1000 mL Inj 1,000 ML @ 125 500 / 500 500 / 500 mls/hr IV.CONT .Q8H [facility] Rx#: [id number] Cleocin 600 mg/NS Premix 600 mg 50 / 50 100 / 100 In 50 ml @ 100 mls/hr IV.SIG Q8H [facility] Rx#:[id number] Vancomycin Inj 1,250 MG In NS 262.5 / 262.5 525.0 / 525.0 Inj 250 ML @ 262.5 mls/hr IV. SIG Q8H [facility] Rx#:[id number] Oral 720 / 720 480 / 480 Other: # Voids 3 4 Date of Last Bowel Movement 07/11/18 07/11/18 # Bowel Movements 1 0 Narrative: GENERAL: AAOx3, no acute distress SKIN: Warm and dry. No rashes HEAD: Atruamtic, normocephalic. EYES: No scleral icterus. No injection or drainage. ENT: Moist mucous membranes, patent nares, no erythema of oropharynx. NECK: Supple, trachea midline. No JVD or lymphadenopathy. Normal thyroid. CARDIOVASCULAR: Regular rate and rhythm. 1/6 systolic ejection murmur RESPIRATORY: Breath sounds clear equal bilaterally. No crackles or wheezes. No accessory muscle use. GASTROINTESTINAL: Abdomen soft, non-tender, nondistended, normal active bowel sounds MUSCULOSKELETAL: No cyanosis, or edema. NEURO: CN II-XII grossly intact, no focal deficits, no slurring of speech Results - Labs CBC & Chem 7: 07/11/18 05:32 07/11/18 05:32 Laboratory Results - last 24 hr 07/11/18 17:40 Vancomycin Trough 7.9 Microbiology 07/10/18 07:40 Blood - Peripheral Aerobic Blood Culture - Preliminary No growth in 1 day 07/10/18 07:40 Blood - Peripheral Anaerobic Blood Culture - Preliminary No growth in 1 day 07/10/18 07:35 Blood - Peripheral Aerobic Blood Culture - Preliminary No growth in 1 day 07/10/18 07:35 Blood - Peripheral Anaerobic Blood Culture - Preliminary No growth in 1 day 07/09/18 18:45 Clean Catch Urine Urine Culture - Final 50-100,000 cfu/mL mixed gram positive glen (probable contaminants) Assessment and Plan - Plan 23 yo female IVDU s/p twin demise demise before 22 weeks s/p Continue IV Clindamycin/Gentamicin h/o polysubstance abuse, IVDU Ativan 0.5mg as needed for signs of withdrawal Finger and toe pain, endocarditis risk Concerning for Osler nodules and subacute endocarditis given h/o IVDU Following blood cultures, so far negative x 1 day, day 2 has no results yet Normal calcium, electrolytes replaced Echocardiogram shows left ventricular enlargement but normal ejection fraction, patient has history of methamphetamine use Infectious disease consult pending Continue Clindamycin/Gentamicin Discharge Planning Would recommend further work up for endocarditis to be completed prior to discharge.
[2018-07-13] MEDS: Vancomycin Inj 1,250 MG in Sodium Chlor 0.9% Inj 250 ML IV.SIG SCH ×2 (01:39→09:36)
[2018-07-13] MEDS: Clindamycin 600 mg/NS Premix 600 MG/50 ML PIGGYBACK IV.SIG SCH (05:04)
[2018-07-13] MEDS ORDERED: Pharmacy Ordered Lab Info OTHER ONE (09:45)
[2018-07-13] MEDS: Senna/Docusate Sodium 8.6/50 MG Tablet PO SCH (11:06)
--- NOTE | 2018-07-13 14:45 | P.AMA ---
AMA Note - AMA Note Recommended Treatment Course: Recommended to stay for treatment and monitoring until cleared by infectious disease for endocarditis risk AMA Statement: Patient Kay Duran has decided to leave the hospital against medical advice. This patient has the capacity to refuse care and understands the risks of leaving, including permanent disability and/or , and has had an opportunity to ask questions about his/her condition. The patient has been informed that he/she may return for care at any time, and follow up has been arranged/advised. Following admission for a twin demise with septic Ms. Duran was covered with IV antibiotics. 2 days after her admission she complains of finger pain and [facility] was consulted to investigate. She had used IV drugs 1 week prior to admission and finger pain was concerning for Osler's nodes despite no palpable nodes being present no visual changes to fingers. Her subjective finger pain along with lingering fevers from her septic placed her at risk. Workup included an echocardiogram which was negative, blood cultures which have been negative for 3 days and empiric treatment with clindamycin and gentamicin via IV for the septic . Her last fever was 2 days ago. She is being treated for clinical risk but there is no definite evidence of endocarditis workup thus far. It is my opinion that she deserves further workup and to maximize her safety further treatment but she was not willing to stay in the hospital and demanded to go home. Rather than send her home with nothing researched p.o. option which is subpar to IV but oral medications for treatment of endocarditis included a combination of clindamycin and rifaximin. She is instructed to return to the hospital immediately if she experiences flulike symptoms, fevers, weakness, shortness of breath, or any other abnormal symptoms. Due to her IV drug use in the past or future she will always be at high risk for developing endocarditis. She understands this and verbally expresses an intent to quit IV drugs. She is leaving AGAINST MEDICAL ADVICE. - AMA Note Discharge Disposition: 07 Against Medical Advice Patient Condition on Discharge: Good
== END 2018-07-13 14:45 | disposition left against medical advice (07) ==
LOC: H2E 18:01 → N04 07-10 18:06
PROVIDERS: ADMIT Family Medicine; ATTEND Family Medicine